=== PATIENT | male | born 1955 | race Caucasian/White ===

== ENCOUNTER 2020-09-19 01:52 | Outpatient (CLI) | payer MEDICARE ==
--- OUTSIDE RECORDS SUMMARY | 2020-09-26 22:28 | EXTERNAL MEDICAL SUMMARY RPT | Continuity of Care Document ---
:1955 Demographics Phone Unavailable Preferred Language Unknown Marital Status Unknown Hinduism Affiliation Unknown Race Unknown Ethnic Group Unknown Author Organization [place] Address [address] [place] [address] Phone Problems date description facility [id number] Acute kidney failure, unspecified [facility] Social History date description facility [phone]
== END 2020-09-19 01:53 | disposition critical access hospital (66) ==
LOC: EMS 01:52
PROVIDERS: ATTEND Emergency Medicine
DX: R10.10 Upper abdominal pain, unspecified (principal)
CPT/HCPCS: A0425; A0429

== ENCOUNTER 2020-09-19 02:26 | Emergency (ER) | payer MEDICARE ==
[2020-09-19] MEDS ORDERED: SODIUM CHLORIDE 0.9% 1,000 ML IV STA (02:45)
[2020-09-19] MEDS ORDERED: GI COCKTAIL 120 ML BOTTLE PO ONE (02:46)
[2020-09-19 03:00] LABS: BASOPHILS # (AUTO) 0.1 10^3/uL (0.0-0.1); BASOPHILS % (AUTO) 0.4 %; EOSINOPHILS # (AUTO) 0.1 10^3/uL (0.0-0.7); EOSINOPHILS % (AUTO) 0.9 %; HCT - HEMATOCRIT 24.7 % (42.0-52.0); HGB - HEMOGLOBIN 8.1 g/dL (14.0-18.0); LYMPHOCYTES # (AUTO) 0.6 10^3/uL (1.5-3.5); LYMPHOCYTES % (AUTO) 5.4 %; MEAN CORPUSCULAR HEMOGLOBIN 31.2 pg (27.0-31.0); MEAN CORPUSCULAR HGB CONC 32.8 g/dL (32.0-36.0); MEAN PLATELET VOLUME 10.7 fL (7.4-11.4); MONOCYTES # (AUTO) 0.7 10^3/uL (0.0-1.0); NEUTROPHILS # (AUTO) 9.7 10^3/uL (1.5-6.6); NEUTROPHILS % (AUTO) 86.8 %; PLT - PLATELET COUNT 170 10^3/uL (130-450); RED CELL DISTRIBUTION WIDTH 13.2 % (12.0-15.0); WHITE BLOOD COUNT 11.2 x10^3/uL (4.8-10.8)
[2020-09-19] MEDS ORDERED: LIDOCAINE VISCOUS 2% 15 ML UDC MM STA (03:04)
[2020-09-19] MEDS ORDERED: MAG HYDROX/AL HYDROX/SIMETH 30 ML UDC PO STA (03:04)
[2020-09-19 03:08] LABS: D-DIMER > 1050.0 ng/mL (200.0-255.0)
[2020-09-19 03:24] LABS: ALBUMIN 3.7 g/dL (3.2-5.5); ALBUMIN/GLOBULIN RATIO 1.3 (1.0-2.2); BILIRUBIN,TOTAL 0.6 mg/dL (0.2-1.0); CALCIUM 8.9 mg/dL (8.5-10.3); POTASSIUM 4.2 mmol/L (3.5-5.0); PT - PROTHROMBIN TIME 11.6 secs (9.9-12.6); TOTAL PROTEIN 6.5 g/dL (6.7-8.2)
--- NOTE | 2020-09-19 03:53 | ED Physician Documentation ---
History of Present Illness - Stated complaint Stated Complaint: LUQ PAIN - Chief complaint Chief Complaint: Abd Pain - History obtained from History obtained from: Patient, EMS - Additonal information Additional information: Patient is brought to the emergency department by EMS after her experiencing epigastric pain that awoke him out of sleep just prior to arrival. Patient states that he also had some diaphoresis, shortness of breath, and little nausea with a small amount of vomiting associated with the same episode. 2 days ago, patient had a similar episode, but this 1 seemed to go away on its own after couple of hours and taken some Tums. Patient states that prior to the medics arriving, he did take a dose of nitroglycerin and of aspirin, and this did seem to help somewhat. He states he still has a little bit of epigastric pain but his nausea is mostly gone. Patient has a history of coronary artery disease for which she has had a quadruple bypass in 2004 in [place], but states he has no problems with his heart currently that he knows of. He has not seen a health information tech recently for this. He does have a primary care physician and self would be where he lives. He states he is not seeing his PCP for at least 9 months, due to Covid. Patient denies fevers or chills. No cough. He does note that his has been telling him he looks pale for the last few days. The patient denies feeling ill in particular. No other complaints at this time. Review of Systems Ten Systems: 10 systems reviewed and negative Constitutional: reports: Reviewed and negative Eyes: reports: Reviewed and negative Ears: reports: Reviewed and negative Nose: reports: Reviewed and negative Throat: reports: Reviewed and negative Cardiac: reports: Reviewed and negative Respiratory: reports: Reviewed and negative GI: reports: Abdominal Pain, Nausea : reports: Reviewed and negative Skin: reports: Reviewed and negative Musculoskeletal: reports: Reviewed and negative Neurologic: reports: Reviewed and negative Psychiatric: reports: Reviewed and negative Endocrine: reports: Reviewed and negative Immunocompromised: reports: Reviewed and negative PD PAST MEDICAL HISTORY - Past Medical History Past Medical History: Yes Cardiovascular: Hypertension, High cholesterol Endocrine/Autoimmune: Type 2 diabetes - Past Surgical History Past Surgical History: No - Present Medications Home Medications: Ambulatory Orders Medication Instructions Recorded Confirmed Aspirin Chewable [[place] 1 tab PO DAILY 09/19/20 09/19/20 Aspirin] Atorvastatin Calcium [Lipitor] 1 tab PO DAILY 09/19/20 09/19/20 Chlorthalidone 1 tab PO DAILY 09/19/20 09/19/20 Metoprolol Succinate [Toprol Xl] 1 tab PO DAILY 09/19/20 09/19/20 Omeprazole 1 tab PO DAILY 09/19/20 09/19/20 Tamsulosin HCl [Flomax] 1 tab PO DAILY 09/19/20 09/19/20 lisinopriL [Lisinopril] 1 tab PO DAILY 09/19/20 09/19/20 - Allergies Allergies/Adverse Reactions: Allergies Allergy/AdvReac Type Severity Reaction Status Date / Time No Known Drug Allergies Allergy Verified 09/19/20 02:36 - Social History Does the pt smoke?: No Smoking Status: Never smoker PD ED PE NORMAL - Vitals Vital signs reviewed: Yes - General General: Alert and oriented X 3, No acute distress - HEENT HEENT: Atraumatic, PERRL, EOMI, Moist mucous membranes, Other (No icterus) - Neck Neck: Supple, no meningeal sign - Cardiac Cardiac: RRR, No murmur, Strong equal pulses - Respiratory Respiratory: No respiratory distress, Clear bilaterally - Abdomen Abdomen: Soft, Non tender, Non distended, Other (Mild epigastric tenderness and moderate left upper quadrant tenderness. Mild right upper quadrant tenderness. No rebound or guarding.) - Back Back: No CVA TTP - Derm Derm: Warm and dry, No rash, Other (Moderate pallor.) - Extremities Extremities: No deformity, No edema, No calf tenderness / cord - Neuro Neuro: Alert and oriented X 3, certified financial planner 2-12 intact, No motor deficit, No sensory deficit, Normal speech - Psych Psych: Normal mood, Normal affect Results - Vitals Vitals: Vital Signs - 24 hr 09/19/20 09/19/20 09/19/20 02:31 02:33 04:01 Temperature 36.5 C Heart Rate 82 78 77 Respiratory 20 18 20 Rate Blood Pressure 132/77 H 151/82 H O2 Saturation 98 98 100 Oxygen O2 Source Room air - EKG (time done) 0231 Rate: Rate (enter#) (72) Rhythm: NSR [place]: Normal Intervals: Normal MO QRS: LVH Ischemia: Normal ST segments. No: T wave inversion Compare to prior EKG: Old EKG unavailable Computer interpretation: Agree with computer - Labs Labs: Laboratory Tests 09/19/20 09/19/20 09/19/20 02:55 02:55 02:55 WBC 11.2 H RBC 2.60 L Hgb 8.1 L Hct 24.7 L MCV 95.0 H MCH 31.2 H MCHC 32.8 RDW 13.2 Plt Count 170 MPV 10.7 Neut # (Auto) 9.7 H Lymph # (Auto) 0.6 L [place] # (Auto) 0.7 Eos # (Auto) 0.1 Baso # (Auto) 0.1 Absolute Nucleated RBC 0.00 Nucleated RBC % 0.0 PT 11.6 INR 1.0 D-Dimer > 1050.0 H Sodium 140 Potassium 4.2 Chloride 106 Carbon Dioxide 18 L Anion Gap 16.0 H BUN 103 H* Creatinine 6.0 H Estimated GFR (MDRD) 9 L Glucose 172 H Calcium 8.9 Total Bilirubin 0.6 AST 164 H ALT 111 H Alkaline Phosphatase 67 Troponin I High Sens Total Protein 6.5 L Albumin 3.7 Globulin 2.8 Albumin/Globulin Ratio 1.3 Lipase 2470 H 09/19/20 02:55 WBC RBC Hgb Hct MCV MCH MCHC RDW Plt Count MPV Neut # (Auto) Lymph # (Auto) [place] # (Auto) Eos # (Auto) Baso # (Auto) Absolute Nucleated RBC Nucleated RBC % PT INR D-Dimer Sodium Potassium Chloride Carbon Dioxide Anion Gap BUN Creatinine Estimated GFR (MDRD) Glucose Calcium Total Bilirubin AST ALT Alkaline Phosphatase Troponin I High Sens 9.4 Total Protein Albumin Globulin Albumin/Globulin Ratio Lipase PD MEDICAL DECISION MAKING - ED course Complexity details: reviewed results, re-evaluated patient, considered differential, d/w patient ED course: The patient was doing better by the time he arrived in the emergency department, but given his history of coronary artery disease, I was concerned about epi sodes that he had had this last couple of days. An EKG with 4 view was unremarkable. The patient's vital signs were completely normal, and the patient was monitored throughout his stay. He was allowed to finish the liter bolus had been started on by EMS. Laboratory studies revealed a host of abnormalities, including an elevated BUN and creatinine at 136 with a GFR of 9. The patient's hemoglobin was 8.1. His Troponin was actually normal. The patient was found to have mild LFT elevations. I spoke with Dr. Quinones at [facility]. She did ultimately agree to admit the patient accept the patient in transfer to her service. Following my conversation with Dr. Quinones, the patient's lipase did come back above 2400. Given the patient also had some modest LFT elevations, I felt he should have an ultrasound done to evaluate his gallbladder and bile ducts. This is pending at this time, as a repeat troponin and the Covid test. The patient has been accepted in transfer. Oncoming emergency physician will follow up on the pending results and notify appropriate specialist or hospitalist at [facility] if needed. Departure - Departure Disposition: 02 Transfer Acute Care Hosp Clinical Impression: Renal failure Qualifiers: Renal failure chronicity: acute Acute renal failure type: unspecified Qualified Code(s): N17.9 - Acute kidney failure, unspecified Chest pain Qualifiers: Chest pain type: unspecified Qualified Code(s): R07.9 - Chest pain, unspecified Anemia Qualifiers: Anemia type: unspecified type Qualified Code(s): D64.9 - Anemia, unspecified Pancreatitis Qualifiers: Pancreatitis type: unspecified pancreatitis type Acute pancreatitis complication: unspecified Condition: Serious
[2020-09-19] MEDS ORDERED: HYDROmorphone 1 MG/ML CARPUJECT IVP STA ×3 (04:16→06:41)
[2020-09-19] MEDS ORDERED: HYDROmorphone 1 MG/ML CARPUJECT ONE (04:30)
[2020-09-19 05:39] LABS: B. PARAPERTUSSIS- RESP PCR PAN NOT DETECTED; B. PERTUSSIS- RESP PCR PANEL NOT DETECTED; C. PNEUMONIAE- RESP PCR PANEL NOT DETECTED; CORONAVIRUS 229E-RESP PCR NOT DETECTED; CORONAVIRUS HKU1-RESP PCR NOT DETECTED; CORONAVIRUS NL63-RESP PCR NOT DETECTED; CORONAVIRUS OC43-RESP PCR NOT DETECTED; HUMAN METAPNEUMOVIRUS NOT DETECTED; INFLUENZA A- RESP PCR PANEL NOT DETECTED; INFLUENZA B - RESP PCR PANEL NOT DETECTED; M. PNEUMONIAE- RESP PCR PANEL NOT DETECTED; PARAINFLUENZA VIRUS 1 NOT DETECTED; PARAINFLUENZA VIRUS 2 NOT DETECTED; PARAINFLUENZA VIRUS 3 NOT DETECTED; PARAINFLUENZA VIRUS 4 NOT DETECTED; RHINOVIRUS/ENTEROVIRUS NOT DETECTED; RSV- RESP PCR PANEL NOT DETECTED; SARS-CoV-2 -RESP PCR PANEL NOT DETECTED
[2020-09-19 05:47] LABS: BILIRUBIN,URINE NEGATIVE (NEGATIVE); GLUCOSE, URINE (UA) NEGATIVE (NEGATIVE); KETONES,URINE (UA) NEGATIVE (NEGATIVE); LEUKOCYTE ESTERASE, URINE NEGATIVE (NEGATIVE); NITRITE,URINE NEGATIVE (NEGATIVE); OCCULT BLOOD,URINE NEGATIVE (NEGATIVE); PH,URINE 5.5 PH (5.0-7.5); PROTEIN,URINE NEGATIVE (NEGATIVE); UROBILINOGEN,URINE 0.2 (NORMAL) E.U./dL (NORMAL)
[2020-09-19 05:48] LABS: CLARITY,URINE CLEAR (CLEAR)
[2020-09-19 06:48] VITALS: BP 135/71
--- NOTE | 2020-09-19 08:21 | XRAY Report ---
PROCEDURE: Chest 1 View X-Ray INDICATIONS: Chest Pain TECHNIQUE: One view of the chest was acquired. COMPARISON: None. FINDINGS: Surgical changes and devices: Multiple median sternotomy wires are intact. Surgical clips in the medi astinum are present. Findings are likely related to prior CABG. Lungs and pleura: No pleural effusions or pneumothorax. Lungs are clear. Mediastinum: Mediastinal contours appear normal. Heart size is normal. Bones and chest wall: No suspicious bony lesions. Overlying soft tissues appear unremarkable. IMPRESSION: Chest without acute cardiopulmonary abnormalities. No focal airspace disease. No significant discrepancy with initial interpretation by overnight radiologist. Reviewed by: Henrique Pierce MD on 09/19/2020 8:19 AM PDT Approved by: Henrique Pierce MD on 09/19/2020 8:19 AM PDT Station ID: [id number]
--- NOTE | 2020-09-19 08:26 | Ultrasound Report ---
PROCEDURE: Abdomen Limited INDICATIONS: upper abd pain, lipase and LFT elevated TECHNIQUE: Real-time scanning was performed of the abdominal and retroperitoneal organs, with image documentatio n. COMPARISON: None. FINDINGS: Liver: Liver is normal in size and heterogeneous in echotexture. No focal intrahepatic masses. Gallbladder: Gallbladder contains multiple mobile stones largest measuring 1.8 cm in size. There is a ssociated gallbladder wall thickening. Small amount of pericholecystic fluid. No sonographic Trejo s ign elicited per bearing ring assembler's report. Biliary ducts: Intrahepatic bile ducts are non-dilated. Extrahepatic bile duct caliber measures 5 m m. Normal is 6-7 mm or less in diameter, or 10 mm or less post-cholecystectomy. Pancreas: Visualized portions of the pancreas are sonographically normal. Kidneys: There is marked right hydronephrosis. Right renal length measures 11.8 cm with renal cortic al thickness of 1.1 cm. No evidence for urolithiasis on the right. No solid masses. Miscellaneous: No free abdominal fluid. IMPRESSION: 1. Cholelithiasis with associated pericholecystic fluid and wall thickening. Findings may be related to cholecystitis, either chronic or acute. A positive sonographic Trejo sign was not elicited by the bearing ring assembler. Consider further evaluation with nuclear medicine hepatobiliary scan. 2. Moderate right hydronephrosis. No evidence for urolithiasis on the right. No significant discrepancy with initial interpretation by overnight radiologist. Reviewed by: Henrique Pierce MD on 09/19/2020 8:25 AM PDT Approved by: Henrique Pierce MD on 09/19/2020 8:25 AM PDT Station ID: [id number]
== END 2020-09-19 06:48 | disposition short-term general hospital (02) ==
LOC: EDUNIT# → ED 02:26
DX: N17.9 Acute kidney failure, unspecified (principal); R07.9 Chest pain, unspecified; K85.90 Acute pancreatitis without necrosis or infection, unspecified; K80.20 Calculus of gallbladder without cholecystitis without obstruction; N13.30 Unspecified hydronephrosis; D64.9 Anemia, unspecified; Z20.822 Contact with and (suspected) exposure to COVID-19; I25.10 Atherosclerotic heart disease of native coronary artery without angina pectoris; Z95.1 Presence of aortocoronary bypass graft; I10 Essential (primary) hypertension; E11.9 Type 2 diabetes mellitus without complications; Z79.82 Long term (current) use of aspirin
CPT/HCPCS: 36415; 71045; 76705; 80053; 81003; 83690; 84484; 85025; 85379; 85610; 87631; 93005; 96374; 96376; 99285; A9270; J1170; 0202U; 81001; 87086

== ENCOUNTER 2020-09-19 06:47 | Outpatient (CLI) | payer MEDICARE ==
--- OUTSIDE RECORDS SUMMARY | 2020-09-26 22:39 | EXTERNAL MEDICAL SUMMARY RPT | Continuity of Care Document ---
:1955 Demographics Phone Unavailable Preferred Language Unknown Marital Status Unknown Buddhist Affiliation Unknown Race Unknown Ethnic Group Unknown Author Organization [place] [address] [place] [address] Phone Problems date description facility [id number] Acute kidney failure, unspecified [facility] Social History date description facility [phone]
== END 2020-09-19 06:48 | disposition short-term general hospital (02) ==
LOC: EMS 06:47
PROVIDERS: ATTEND Emergency Medicine
DX: N19 Unspecified kidney failure (principal); R07.9 Chest pain, unspecified; I25.10 Atherosclerotic heart disease of native coronary artery without angina pectoris; D64.9 Anemia, unspecified; K85.90 Acute pancreatitis without necrosis or infection, unspecified
CPT/HCPCS: A0425; A0428

== ENCOUNTER 2020-10-22 17:05 | Inpatient (IN) | payer MEDICARE ==
--- OUTSIDE RECORDS SUMMARY | 2020-10-22 17:08 | EXTERNAL MEDICAL SUMMARY RPT | Continuity of Care Document ---
:1955 Demographics Phone Unavailable Preferred Language Unknown Marital Status Unknown Nondenominational Affiliation Unknown Race Unknown Ethnic Group Unknown Author Organization [place] [address] [place] [address] Phone Problems date description facility [id number] Acute kidney failure, unspecified [facility] Social History date description facility [phone]
--- OUTSIDE RECORDS SUMMARY | 2020-10-22 17:11 | EXTERNAL MEDICAL SUMMARY RPT | Continuity of Care Document ---
:1955 Demographics Phone Unavailable Preferred Language Unknown Marital Status Unknown Holiness Affiliation Unknown Race Unknown Ethnic Group Unknown Author Organization [place] [address] [place] [address] Phone Problems date description facility [id number] Acute kidney failure, unspecified [facility] Social History date description facility [phone]
[2020-10-22] MEDS ORDERED: CEFEPIME 2 GM in SODIUM CHLORIDE 0.9% MINIBAG 100 ML IV STA (17:31)
[2020-10-22] MEDS ORDERED: LACTATED RINGERS IV STA (17:31)
--- NOTE | 2020-10-22 17:31 | ED Physician Documentation ---
PD HPI ABD PAIN - Stated complaint Stated Complaint: MALE - Chief complaint Chief Complaint: Abd Pain - History obtained from History obtained from: Patient - Additional information Additional information: 65-year-old gentleman with history of BPH, renal failure due to urinary obstruction and coronary disease status post remote bypass presents with fevers chills and bilateral flank pain starting today. He was seen here on September 19 and noted to be in acute renal failure. He was sent to [facility], the cause of the acute renal failure was felt to be likely due to the urinary obstruction. Reportedly this resolved after catheter placement. Subsequently he also had evidence of cholecystitis and he had a laparoscopic cholecystectomy. He had a urinary catheter removed about a week ago, was on antibiotics, not sure which until that time. Actually had a urinalysis done for gross hematuria which she has a copy of, it was collected on October 18. It was a positive urinalysis and the culture grew Klebsiella oxytocin sensitive to cefepime, ciprofloxacin, imipenem, levofloxacin, meropenem, nitrofurantoin, and resistant to ampicillin/Augmentin, cefazolin, ceftriaxone, cefuroxime, gentamicin, te tracycline, tobramycin, and Bactrim. Review of Systems Ten Systems: 10 systems reviewed and negative Constitutional: reports: Fever, Chills Throat: reports: Reviewed and negative Cardiac: reports: Reviewed and negative Respiratory: reports: Reviewed and negative GI: reports: Reviewed and negative : reports: Reviewed and negative Skin: reports: Reviewed and negative Musculoskeletal: reports: Reviewed and negative PD PAST MEDICAL HISTORY - Past Medical History Cardiovascular: Hypertension, High cholesterol Endocrine/Autoimmune: Type 2 diabetes - Past Surgical History Past Surgical History: No - Present Medications Home Medications: Ambulatory Orders Medication Instructions Recorded Confirmed Aspirin Chewable [[place] 1 tab PO DAILY 09/19/20 09/19/20 Aspirin] Atorvastatin Calcium [Lipitor] 1 tab PO DAILY 09/19/20 09/19/20 Chlorthalidone 1 tab PO DAILY 09/19/20 09/19/20 Metoprolol Succinate [Toprol Xl] 1 tab PO DAILY 09/19/20 09/19/20 Omeprazole 1 tab PO DAILY 09/19/20 09/19/20 Tamsulosin HCl [Flomax] 1 tab PO DAILY 09/19/20 09/19/20 lisinopriL [Lisinopril] 1 tab PO DAILY 09/19/20 09/19/20 - Allergies Allergies/Adverse Reactions: Allergies Allergy/AdvReac Type Severity Reaction Status Date / Time No Known Drug Allergies Allergy Verified 10/22/20 17:18 - Social History Does the pt smoke?: No Smoking Status: Never smoker PD ED PE NORMAL - Vitals Vital signs reviewed: Yes - General General: Alert and oriented X 3, No acute distress - HEENT HEENT: PERRL, EOMI - Neck Neck: Supple, no meningeal sign, No bony TTP - Cardiac Cardiac: RRR, No murmur - Respiratory Respiratory: No respiratory distress, Clear bilaterally - Abdomen Abdomen: Other (Mild suprapubic tenderness, no flank tenderness. Bedside bladder scan demonstrates almost 700 mL in the bladder.) - Back Back: No CVA TTP, No spinal TTP - Derm Derm: Normal color, Warm and dry - Extremities Extremities: No edema, No calf tenderness / cord - Neuro Neuro: Alert and oriented X 3, Normal speech Results - Vitals Vitals: Vital Signs - 24 hr 10/22/20 10/22/20 10/22/20 17:11 17:51 18:21 Temperature 38.4 C H Heart Rate 108 H 102 H 96 Respiratory 20 28 H 22 Rate Blood Pressure 154/89 H 142/88 H 143/95 H O2 Saturation 100 99 98 10/22/20 10/22/20 18:48 19:30 Temperature 37.1 C Heart Rate 98 86 Respiratory 29 H 22 Rate Blood Pressure 134/95 H 127/78 O2 Saturation 98 88 L Oxygen O2 Source Room air - Labs Labs: Laboratory Tests 10/22/20 10/22/20 10/22/20 17:36 17:36 17:36 WBC 16.0 H RBC 3.12 L Hgb 9.6 L Hct 29.3 L MCV 93.9 MCH 30.8 MCHC 32.8 RDW 13.8 Plt Count 253 MPV 9.2 Neut # (Auto) 13.8 H Lymph # (Auto) 0.7 L [place] # (Auto) 1.3 H Eos # (Auto) 0.0 Baso # (Auto) 0.1 Absolute Nucleated RBC 0.00 Nucleated RBC % 0.0 Sodium 136 Potassium 4.6 Chloride 101 Carbon Dioxide 23 Anion Gap 12.0 BUN 69 H Creatinine 3.8 H Estimated GFR (MDRD) 16 L Glucose 132 H Lactic Acid 1.6 Calcium 9.5 Total Bilirubin 0.6 AST 16 ALT 17 Alkaline Phosphatase 82 Total Protein 7.8 Albumin 3.4 Globulin 4.4 H Albumin/Globulin Ratio 0.8 L Urine Color Urine Clarity Urine pH Ur Specific [place] Urine Protein Urine Glucose (UA) Urine Ketones Urine Occult Blood Urine Nitrite Urine Bilirubin Urine Urobilinogen Ur Leukocyte Esterase Urine RBC Urine WBC Ur Squamous Epith Cells Urine Bacteria Urine Culture Comments 10/22/20 17:52 WBC RBC Hgb Hct MCV MCH MCHC RDW Plt Count MPV Neut # (Auto) Lymph # (Auto) [place] # (Auto) Eos # (Auto) Baso # (Auto) Absolute Nucleated RBC Nucleated RBC % Sodium Potassium Chloride Carbon Dioxide Anion Gap BUN Creatinine Estimated GFR (MDRD) Glucose Lactic Acid Calcium Total Bilirubin AST ALT Alkaline Phosphatase Total Protein Albumin Globulin Albumin/Globulin Ratio Urine Color YELLOW Urine Clarity CLOUDY Urine pH 6.0 Ur Specific [place] 1.010 Urine Protein 100 H Urine Glucose (UA) NEGATIVE Urine Ketones NEGATIVE Urine Occult Blood LARGE H Urine Nitrite NEGATIVE Urine Bilirubin NEGATIVE Urine Urobilinogen 0.2 (NORMAL) Ur Leukocyte Esterase LARGE H Urine RBC 11-25 H Urine WBC >25 H Ur Squamous Epith Cells NONE SEEN Urine Bacteria Moderate H Urine Culture Comments INDICATED - Rads (name of study) CT KUB Radiology: EMP read contemporaneously (Right hydronephrosis and hydroureters bilaterally, ureters are dilated to the level UVJ. Masslike density in the bladder lumen could be hematoma or tumor, mild left renal atrophy, bladder wall thickening, indeterminate sclerotic foci in the pelvis and sacrum) PD MEDICAL DECISION MAKING - ED course ED course: States last outpt creatinine was 2.6. 65-year-old gentleman presents with sepsis related to UTI, bladder outlet obstruction. Case discussed by phone with Dr. Dot Rosario, urologist on- call for his urologist in [place]. She did not feel that he needs transfer at this point. Recommends hand bladder irrigation and admission here for expectant management with IV fluids, IV antibiotics, cultures etc. When he is discharged in the hospital bladder catheter should stay in place and he should follow-up with urology for cystoscopy and TURP. Spoke with Dr. Ruiz for admission at 7:34 PM. Departure - Departure Disposition: 66 [facility] DC/Xfer Clinical Impression: Urinary retention, Pyelonephritis, RAND (acute kidney injury) Sepsis Qualifiers: Sepsis type: sepsis due to unspecified organism Sepsis acute organ dysfunction status: with acute organ dysfunction Severe sepsis acute organ dysfunction type: acute renal failure Acute renal failure type: unspecified Severe sepsis shock status: without septic shock Qualified Code(s): A41.9 - Sepsis, unspecified organism Chronic renal insufficiency Qualifiers: Chronic kidney disease stage: stage 4 (severe) Qualified Code(s): N18.4 - Chronic kidney disease, stage 4 (severe)
[2020-10-22 17:42] LABS: BASOPHILS # (AUTO) 0.1 10^3/uL (0.0-0.1); BASOPHILS % (AUTO) 0.4 %; EOSINOPHILS % (AUTO) 0.1 %; HCT - HEMATOCRIT 29.3 % (42.0-52.0); HGB - HEMOGLOBIN 9.6 g/dL (14.0-18.0); LYMPHOCYTES # (AUTO) 0.7 10^3/uL (1.5-3.5); LYMPHOCYTES % (AUTO) 4.1 %; MEAN CORPUSCULAR HEMOGLOBIN 30.8 pg (27.0-31.0); MEAN CORPUSCULAR HGB CONC 32.8 g/dL (32.0-36.0); MEAN CORPUSCULAR VOLUME 93.9 fL (80.0-94.0); MEAN PLATELET VOLUME 9.2 fL (7.4-11.4); MONOCYTES # (AUTO) 1.3 10^3/uL (0.0-1.0); MONOCYTES % (AUTO) 8.3 %; NEUTROPHILS # (AUTO) 13.8 10^3/uL (1.5-6.6); NEUTROPHILS % (AUTO) 86.5 %; PLT - PLATELET COUNT 253 10^3/uL (130-450); RED BLOOD COUNT 3.12 10^6/uL (4.70-6.10); RED CELL DISTRIBUTION WIDTH 13.8 % (12.0-15.0)
[2020-10-22 17:55] LABS: ALBUMIN 3.4 g/dL (3.2-5.5); ALBUMIN/GLOBULIN RATIO 0.8 (1.0-2.2); BILIRUBIN,TOTAL 0.6 mg/dL (0.2-1.0); CALCIUM 9.5 mg/dL (8.5-10.3); CREATININE 3.8 mg/dL (0.6-1.2); POTASSIUM 4.6 mmol/L (3.5-5.0); TOTAL PROTEIN 7.8 g/dL (6.7-8.2)
[2020-10-22 18:02] LABS: BILIRUBIN,URINE NEGATIVE (NEGATIVE); GLUCOSE, URINE (UA) NEGATIVE (NEGATIVE); KETONES,URINE (UA) NEGATIVE (NEGATIVE); LEUKOCYTE ESTERASE, URINE LARGE (NEGATIVE); NITRITE,URINE NEGATIVE (NEGATIVE); OCCULT BLOOD,URINE LARGE (NEGATIVE); PROTEIN,URINE 100 mg/dL (NEGATIVE); UROBILINOGEN,URINE 0.2 (NORMAL) E.U./dL (NORMAL)
[2020-10-22] MEDS ORDERED: ACETAMINOPHEN 325 MG TABLET PO STA (18:02)
[2020-10-22 18:07] LABS: CLARITY,URINE CLOUDY (CLEAR)
[2020-10-22 18:19] LABS: BACTERIA,URINE Moderate /HPF (None Seen); SQUAMOUS EPITHELIAL CELL,UR NONE SEEN (<= Few); WBC,URINE >25 /HPF (0-3)
--- NOTE | 2020-10-22 19:06 | CT Report ---
PROCEDURE: Abdomen/Pelvis WO INDICATIONS: urinary obstruction, sepsis TECHNIQUE: Noncontrast 5 mm thick sections acquired from the diaphragms to the symphysis. 5 mm coronal and sagi ttal reformats were then performed. For radiation dose reduction, the following was used: automated exposure control, adjustment of mA and/or kV according to patient size. COMPARISON: Ultrasound abdomen, 09/19/2020. FINDINGS: Image quality: Excellent. ABDOMEN: Lung bases: Lung bases are clear. Heart size is normal. Solid organs: Liver and spleen are normal in size. Gallbladder is visualized, likely surgically rem hannah. Pancreas is normal in contours. No adrenal nodules. Left kidney is decreased in size. There are bilateral moderate hydronephrosis and hydroureter. Ureter s are dilated to the level of UVJ. Kidneys are normal in size. No renal stones or ureteral stones. Bl adder is thickened. A [place] catheter is seen within the bladder. There is a masslike structure within the dependent bladder lumen. Peritoneum and bowel: Unenhanced bowel loops demonstrate normal wall thickness and caliber. No free fluid or air. Nodes and vessels: No retroperitoneal or mesenteric adenopathy by size criteria. Ectatic proximal ab dominal aorta measuring 3 cm in diameter. Gbov-yn-tfenodcl atherosclerosis. Miscellaneous: No ventral hernias. PELVIS: Genitourinary: Bladder wall thickness is normal. Miscellaneous: No inguinal hernias or adenopathy. Bones: There are several sclerotic foci in bony pelvis and sacrum iliac bone. No vertebral body comp ression fractures. IMPRESSION: 1. Moderate hydronephrosis and hydroureters bilaterally. Ureters are dilated to the level of UVJ. No obstructive renal stones or ureteral stones. There is a masslike density in the bladder lumen, which could be a hematoma or tumors mass. Recommend urologic consultation. 2. Mild left renal atrophy. 3. Bladder wall thickening. Differential diagnoses include cystitis versus chronic bladder outlet obs truction. 4. Indeterminate sclerotic foci in pelvis and sacrum. Differential diagnosis includes bone islands ve rsus metastatic disease. 5. Reviewed by: Radha Cole MD on 10/22/2020 7:04 PM PDT Approved by: Radha Cole MD on 10/22/2020 7:04 PM PDT Station ID: [id number]
[2020-10-22] MEDS ORDERED: SODIUM CHLORIDE FLUSH 0.9% 10 ML SYRINGE IVP PRN (19:37)
[2020-10-22] MEDS ORDERED: MORPHINE 2 MG/ML CARPUJECT IVP PRN (19:37)
[2020-10-22] MEDS ORDERED: ONDANSETRON 4 MG/2 ML VIAL IVP PRN (19:37)
--- NOTE | 2020-10-22 19:47 | HISTORY & PHYSICAL EXAMINATION ---
Chief Complaint - Chief Complaint Chief Complaint: Fever and fatigue History of Present Illness - Admitted From Admitted From:: Home - History Obtained From Records Reviewed: Yes History obtained from: Patient, ER Physician, EMR - History of Present Illness HPI Comment/Other: This is a pleasant 65-year-old male with a past medical history significant for coronary artery disease, hypertension, prediabetes, BPH who presents today complaining of fever and fatigue. He was hospitalized last month at [facility] for nearly 2 weeks for acute kidney injury secondary to bladder outlet obstruction that required a Laughlin catheter to be placed. He also had pancreatitis and underwent a cholecystectomy during that hospitalization. He states he was discharged home with a Laughlin catheter. He developed hematuria last Friday while the catheter was in place and so he saw his primary care provider who ordered urinalysis and he was diagnosed with a urinary tract infection and was started on Augmentin. He then saw his urologist 2 days later who irrigated his bladder and removed the catheter. The patient states he was supposed follow-up with his primary care provider if he had difficulty urinating but he felt like he was improving as he was able to urinate about 120 mL each time and the bleeding had resolved. He then woke up this morning feeling fatigued and weak. He measured his temperature which was as high as 101 F. He reports some chills and rigors. Denies any dizziness, lightheadedness, chest pain, dyspnea. He does report dysuria but denies any further hematuria. He does complain of some suprapubic tenderness. He tells me he is scheduled to see his urologist for cystoscopy. He does take aspirin 81 mg daily for his history of coronary artery disease. He is also taking Proscar and Flomax. He tells me his baseline creatinine after discharge from [facility] was about 2.4. In the emergency department, he was found to be febrile with a temperature of 38.4 C. His heart was in the 100s. Blood pressure was in the 140 systolic. H e was tachypneic with respiratory rate of 22. He was saturating 99% on room air. Labs were significant for a white count of 16 with a left shift. Hemoglobin was 9.6. His BUN was 69 and creatinine 3.8. Lactic acid was 1.6. Urinalysis revealed large occult blood, large leuk esterase, 11-25 RBCs, with >25 WBCs and moderate bacteria. CT of the abdomen and pelvis revealed moderate hydronephrosis and hydroureters bilaterally with a masslike density in the bladder lumen which could be hematoma or tumor mass. Bladder wall thickening. Received cefepime IV in the emergency department. Given the above findings, medicine was consulted for admission. We did discuss goals of care and he would like to be a full code. History - Past Medical History Cardiovascular: reports: Hypertension, High cholesterol, Coronary artery disease Endocrine/Autoimmune: reports: Other (Prediabetes) : reports: Benign prostate hypertrophy - Past Surgical History General: reports: Appendectomy Cardiovascular: reports: CABG - Family & Social History Family History: Father: , CAD, Diabetes, Type 2, [place] Family History Comment/Other: His father had a history of poorly controlled diabetes. He also had a coronary artery disease and from myocardial infarction. He denies a family history of cancer or renal disease. Living arrangement: At home Living Situation: With spouse/s.o. Social History Notes: He lives at home with his . He previously worked for [employer] but is now retired. He smoked about a pack a day for 20 years but quit in 1991. He will have an occasional glass of wine. Meds/Allgy - Home Medications Home Medications: Ambulatory Orders Medication Instructions Recorded Confirmed Aspirin Chewable [[facility] 1 tab PO DAILY 09/19/20 09/19/20 Aspirin] Atorvastatin Calcium [Lipitor] 1 tab PO DAILY 09/19/20 09/19/20 Chlorthalidone 1 tab PO DAILY 09/19/20 09/19/20 Metoprolol Succinate [Toprol Xl] 1 tab PO DAILY 09/19/20 09/19/20 Omeprazole 1 tab PO DAILY 09/19/20 09/19/20 Tamsulosin HCl [Flomax] 1 tab PO DAILY 09/19/20 09/19/20 lisinopriL [Lisinopril] 1 tab PO DAILY 09/19/20 09/19/20 - Allergies Allergies/Adverse Reactions: Allergies Allergy/AdvReac Type Severity Reaction Status Date / Time No Known Drug Allergies Allergy Verified 10/22/20 17:18 Review of Systems - Constitutional Constitutional: reports: Fever, Chills - Eyes Eyes: denies: Blurred vision - Cardiovascular Cariovascular: denies: Chest pain, Lightheadedness, Exertional dyspnea, Decr. exercise tolerance - Respiratory Respiratory: denies: Sputum production, SOB at rest, SOB with exertion - Gastrointestinal Gastrointestinal: reports: Diarrhea, Change in bowel habits. denies: Abdominal pain, Rectal bleeding, Black stools, Bloody stools, Nausea, Vomiting - Genitourinary Genitourinary: reports: Dysuria, Urgency, Hematuria, Flank pain. denies: Frequency - Musculoskeletal Musculoskeletal: denies: Limited range of motion - Integumentary Integumentary: denies: Rash - Neurological Neurological: denies: General weakness, Focal weakness, Headache, Dizziness - Hematologic/Lymphatic Hematologic/Lymphatic: reports: Anemia. denies: Bleeding tendencies - All Other Systems All Other Systems: reports: Reviewed and negative Prior Level of Functionality: He is independent with his ADLs. Exam - Vital Signs Reviewed Vital Signs: Yes Vital Signs: Vital Signs x48h Temp Pulse Resp BP Pulse Ox 10/22/20 19:30 86 22 127/78 88 L 10/22/20 18:48 37.1 C 98 29 H 134/95 H 98 10/22/20 18:21 96 22 143/95 H 98 10/22/20 17:51 102 H 28 H 142/88 H 99 10/22/20 17:11 38.4 C H 108 H 20 154/89 H 100 - Physical Exam General Appearance: positive: No acute distress, Alert Eyes Bilateral: positive: Normal inspection, Conjunctivae nml ENT: positive: ENT inspection nml Neck: positive: Nml inspection Respiratory: positive: No respiratory distress. negative: Wheezes, Rales Cardiovascular: positive: Regular rate & rhythm, No murmur. negative: Ta chycardia, Systolic murmur Abdomen: positive: No distention, Tenderness (In suprapubic region.), Other (Prior incisions for cholecystectomy appear clean, dry without erythema.). negative: Non-tender, Guarding, Rebound Rectal: positive: Other (Laughlin catheter in place.) Back: negative: CVA tenderness (R), CVA tenderness (L) Skin: positive: Warm, Dry Extremities: positive: No pedal edema Neurologic/Psychiatric: positive: Motor nml. negative: Disoriented to person, Disoriented to place Sepsis Event Note (H) - Evaluation Current Stage of Sepsis: Sepsis Possible source of Sepsis: positive: Genitourinary - Sepsis Criteria Sepsis Criteria: Recorded Temperature greater than 38.3C or Less than 36C, Recorded Heart Rate greater than 90 bpm, WBC count greater than 12,000 or less than 4000, Renal: urine output less than 0.5ml/kg/hr for 2 hours or creatinine gr Conclusion/Plan - Problem List (1) Sepsis Conclusion/Plan: This appears to be secondary to the pyelonephritis. He presents with fever, tachycardia, leukocytosis. His lactic acid is normal and he is normotensive. We will admit for IV antibiotics. We will start him on cefepime IV based off of his outpatient cultures. Follow-up blood cultures. Follow-up repeat urine culture during this hospitalization. Daily CBC. Qualifiers: Sepsis type: sepsis due to unspecified organism Sepsis acute organ dysfunction status: with acute organ dysfunction Severe sepsis acute organ dysfunction type: acute renal failure Acute renal failure type: unspecified Severe sepsis shock status: without septic shock Qualified Code(s): A41.9 - Sepsis, unspecified organism; R65.20 - Severe sepsis without septic shock; N17.9 - Acute kidney failure, unspecified (2) Pyelonephritis Conclusion/Plan: This appears to be a source of his sepsis. He presents with abnormal urinalysis and flank pain. His outpatient urinalysis from October 18 grew Klebsiella oxytocin which is sensitive to cefepime, meropenem, ciprofloxacin and resistant to Augmentin, ceftriaxone. CT of the abdomen pelvis revealed no obvious obstruction. There is bilateral hydronephrosis secondary to likely bladder outlet obstruction due to clot versus mass. We will place him on IV cefepime and follow-up repeat urine culture and blood cultures. (3) Bilateral hydronephrosis Conclusion/Plan: He has bilateral hydronephrosis on imaging without evidence of obstructive stones. Suspect this is secondary to bladder outlet obstruction due to a clot or mass in his bladder versus BPH. This finding was discussed with urology by the emergency department provider and they recommended Laughlin catheter placement and outpatient follow-up. We will keep the catheter in place and continue Flomax as well as Proscar. (4) Acute kidney injury superimposed on CKD Conclusion/Plan: It appears he likely has chronic kidney disease secondary to the hydronephrosis which was present even last month. His acute kidney injury I suspect is due to worsening obstruction although there could be component of prerenal injury. At this time, we will hold his home lisinopril. Hydrate him with IV fluids. Avoid nephrotoxins. We will keep the Laughlin catheter in place and monitor his renal function on daily basis. (5) Hematuria Conclusion/Plan: Suspect this may be secondary to laughlin irritation and his BPH versus mass or clot in the bladder. He has minimal gross hematuria at this time We will keep the Laughlin catheter in place and start the patient on continuous bladder irrigation. He will need outpatient follow-up with urology for cystoscopy. We will hold aspirin given the hematuria but will resume when appropriate. (6) Anemia Conclusion/Plan: His hemoglobin is actually increased today to 9.6 from 8.1 last month. This could be chronic secondary to renal insufficiency although there could also be a component of acute blood loss anemia given the hematuria. At this time, we will check his iron studies. Repeat hemoglobin in the morning. Hold pharmacologic DVT prophylaxis and his home aspirin. SCDs for DVT prophylaxis. (7) History of coronary artery disease Conclusion/Plan: Stable. We will hold his home aspirin given the hematuria but continue his statin. We will continue his beta-larry once we ensure his blood pressure is stable from a sepsis standpoint. (8) Prediabetes Conclusion/Plan: This is diet controlled. We will place him on a carb controlled diet. - Lab Results Lab results reviewed: Yes Fish Bones: 10/22/20 17:36 10/22/20 17:36 - Diagnostic Imaging Results Diagnostic Imaging Results: positive: Final report reviewed Core Measures - Anticipated LOS I expect patient to be DC'd or transferred within 96 hours.: Yes - Issues Hospital Issues and Management Plan: 65-year-old male with history of coronary disease presents with fever and chills after being treated for an outpatient urinary tract infection found to have sepsis as well as bilateral hydronephrosis secondary to bladder outlet obstruction. We will admit for IV antibiotics and Laughlin catheter placement. Also has gross hematuria and so we will place him on continuous bladder irri gation. - DVT/VTE - Prophylaxis VTE/DVT Device ordered at admit?: Yes VTE/DVT Prophylaxis med ordered at admit?: No Not Ordered - Medical Reason: Contraindicated
--- OUTSIDE RECORDS SUMMARY | 2020-10-22 20:02 | EXTERNAL MEDICAL SUMMARY RPT | Continuity of Care Document ---
:1955 Demographics Phone Unavailable Preferred Language Unknown Marital Status Unknown Mu-Ism Affiliation Unknown Race Unknown Ethnic Group Unknown Author Organization [facility] Address [address] [place] [address] Phone Problems date description facility [id number] Acute kidney failure, unspecified [facility] Social History date description facility [id number]
[2020-10-22 20:45] LABS: B. PARAPERTUSSIS- RESP PCR PAN NOT DETECTED; B. PERTUSSIS- RESP PCR PANEL NOT DETECTED; C. PNEUMONIAE- RESP PCR PANEL NOT DETECTED; CORONAVIRUS 229E-RESP PCR NOT DETECTED; CORONAVIRUS HKU1-RESP PCR NOT DETECTED; CORONAVIRUS NL63-RESP PCR NOT DETECTED; CORONAVIRUS OC43-RESP PCR NOT DETECTED; HUMAN METAPNEUMOVIRUS NOT DETECTED; INFLUENZA A- RESP PCR PANEL NOT DETECTED; INFLUENZA B - RESP PCR PANEL NOT DETECTED; M. PNEUMONIAE- RESP PCR PANEL NOT DETECTED; PARAINFLUENZA VIRUS 1 NOT DETECTED; PARAINFLUENZA VIRUS 2 NOT DETECTED; PARAINFLUENZA VIRUS 3 NOT DETECTED; PARAINFLUENZA VIRUS 4 NOT DETECTED; RHINOVIRUS/ENTEROVIRUS NOT DETECTED; RSV- RESP PCR PANEL NOT DETECTED; SARS-CoV-2 -RESP PCR PANEL NOT DETECTED
[2020-10-22] MEDS: LACTATED RINGERS 1,000 ML IV SCH (21:44)
[2020-10-22] MEDS: TAMSULOSIN 0.4 MG CAPSULE PO SCH (21:45)
[2020-10-23] MEDS: ACETAMINOPHEN 325 MG TABLET PO PRN ×2 (00:16→14:47)
[2020-10-23] MEDS: SODIUM CHLORIDE FLUSH 0.9% 10 ML SYRINGE IVP SCH ×3 (00:17→16:38)
[2020-10-23 05:21] LABS: BASOPHILS % (AUTO) 0.3 %; EOSINOPHILS # (AUTO) 0.1 10^3/uL (0.0-0.7); EOSINOPHILS % (AUTO) 0.4 %; HCT - HEMATOCRIT 26.1 % (42.0-52.0); HGB - HEMOGLOBIN 8.4 g/dL (14.0-18.0); MEAN CORPUSCULAR HEMOGLOBIN 30.5 pg (27.0-31.0); MEAN CORPUSCULAR HGB CONC 32.2 g/dL (32.0-36.0); MEAN CORPUSCULAR VOLUME 94.9 fL (80.0-94.0); MEAN PLATELET VOLUME 9.8 fL (7.4-11.4); MONOCYTES # (AUTO) 1.4 10^3/uL (0.0-1.0); MONOCYTES % (AUTO) 9.6 %; NEUTROPHILS # (AUTO) 11.7 10^3/uL (1.5-6.6); NEUTROPHILS % (AUTO) 82.1 %; PLT - PLATELET COUNT 202 10^3/uL (130-450); RED BLOOD COUNT 2.75 10^6/uL (4.70-6.10); RED CELL DISTRIBUTION WIDTH 13.7 % (12.0-15.0); WHITE BLOOD COUNT 14.3 x10^3/uL (4.8-10.8)
[2020-10-23 05:43] LABS: CALCIUM 9.1 mg/dL (8.5-10.3); CREATININE 3.7 mg/dL (0.6-1.2); MAGNESIUM 1.7 mg/dL (1.7-2.8); POTASSIUM 4.3 mmol/L (3.5-5.0)
--- NOTE | 2020-10-23 07:27 | PROVIDER PROGRESS NOTE ---
Subjective - Prog Note Date Prog Note Date: 10/23/20 Prog Note Time: 07:25 - Subjective Pt reports feeling: Improved Subjective: no overnight problems. creatinine has not responded much. hematuria has resolved. He wants to know what the differential diagnosis is of hematuria. I explained to him that with instrumentation of his urethra, into his bladder, it could be trauma from the Laughlin bruising his bladder wall causing bleeding and clots. It could be prostatitis. It could also be bladder cancer. He was supposed to get a cystoscopy this week but it is good to be canceled because of this visit. Hopefully he will get a cystoscopy in the near future. Current Medications - Current Medications Current Medications: Active Medications Acetaminophen (Acetaminophen 325 Mg Tablet) 650 mg PO Q4HR PRN PRN Reason: Pain 1 to 4 Last Admin: 10/23/20 00:16 Dose: 650 mg Documented by: Ferrous Gluconate (Ferrous Gluconate 324 Mg Tablet) 324 mg PO DAILYWM [facility] Finasteride (Finasteride 5 Mg Tablet) 5 mg PO DAILY [facility] Lactated Ringer's (Lr) 1,000 mls @ 100 mls/hr IV .Q10H [facility] Last Admin: 10/22/20 21:44 Dose: 100 mls/hr Documented by: Cefepime HCl 1 gm/ Sodium (Chloride) 100 mls @ 200 mls/hr IV DAILY [facility] Morphine Sulfate (Morphine 2 Mg/Ml Carpuject) 2 mg IVP Q2HR PRN PRN Reason: Pain 8 to 10 Ondansetron HCl (Ondansetron 4 Mg/2 Ml Vial) 4 mg IVP Q6HR PRN PRN Reason: Nausea / Vomiting Sodium Chloride (Sodium Chloride Flush 0.9% 10 Ml Syringe) 10 ml IVP PRN PRN PRN Reason: NEEDED PER PROVIDER ORDERS Sodium Chloride (Sodium Chloride Flush 0.9% 10 Ml Syringe) 10 ml IVP 0100,0900,1700 [facility] Last Admin: 10/23/20 00:17 Dose: 10 ml Documented by: Tamsulosin HCl (Tamsulosin 0.4 Mg Capsule) 0.4 mg PO HS [facility] Last Admin: 10/22/20 21:45 Dose: 0.4 mg Documented by: Aspirin Chewable [[place] Aspirin] 1 tab PO DAILY 09/19/20 Atorvastatin Calcium [Lipitor] 1 tab PO DAILY 09/19/20 Chlorthalidone 1 tab PO DAILY 09/19/20 Metoprolol Succinate [Toprol Xl] 1 tab PO DAILY 09/19/20 Omeprazole 1 tab PO DAILY 09/19/20 Tamsulosin HCl [Flomax] 1 tab PO DAILY 09/19/20 lisinopriL [Lisinopril] 1 tab PO DAILY 09/19/20 Objective - Vital Signs/Intake & Output Reviewed Vital Signs: Yes Vital Signs: Vital Signs x48h Temp Pulse Resp BP Pulse Ox 10/23/20 05:00 36.6 C 66 16 133/65 H 98 10/22/20 23:49 37.1 C 89 17 132/77 H 100 Intake & Output: Intake & Output 10/20/20 10/21/20 10/22/20 10/23/20 23:59 23:59 23:59 23:59 Intake Total 2195.59 1600 Output Total 2100 3125 Balance 95.59 -1525 - Objective General Appearance: positive: Alert, Other (Thin white male, no acute distress. Already feeling much better from yesterday to today. He is thin. He has lost 25 pounds in the last 4 weeks.) Eyes Bilateral: positive: PERRL, EOMI ENT: positive: No signs of dehydration Neck: positive: No JVD Respiratory: positive: No respiratory distress. negative: Wheezes, Rales, Rhonchi Cardiovascular: positive: Regular rate & rhythm. negative: Gallop/S4, Friction rub Abdomen: positive: No organomegaly, Nml bowel sounds, No distention, Tenderness (Over the bladder area. Mild.), Other (Is draining clear yellow urine. No clots no hematuria.). negative: Guarding, Rebound Skin: positive: Warm, Dry, Pallor Extremities: positive: Non-tender, No pedal edema Neurologic/Psychiatric: positive: Oriented x3, CN's nml (2-12), Motor nml - Lab Results Fish Bones: 10/23/20 05:08 10/23/20 05:08 Other Labs: Lab Results x24hrs 10/23/20 10/23/20 10/23/20 Range/Units 05:08 05:08 05:08 WBC 14.3 H (4.8-10.8) x10^3/uL RBC 2.75 L (4.70-6.10) 10^6/uL Hgb 8.4 L (14.0-18.0) g/dL Hct 26.1 L (42.0-52.0) % MCV 94.9 H (80.0-94.0) fL MCH 30.5 (27.0-31.0) pg MCHC 32.2 (32.0-36.0) g/dL RDW 13.7 (12.0-15.0) % Plt Count 202 (130-450) 10^3/uL MPV 9.8 (7.4-11.4) fL Neut # (Auto) 11.7 H (1.5-6.6) 10^3/uL Lymph # (Auto) 1.0 L (1.5-3.5) 10^3/uL [place] # (Auto) 1.4 H (0.0-1.0) 10^3/uL Eos # (Auto) 0.1 (0.0-0.7) 10^3/uL Baso # (Auto) 0.0 (0.0-0.1) 10^3/uL Absolute Nucleated RBC 0.00 x10^3/uL Nucleated RBC % 0.0 /100WBC Sodium 141 (135-145) mmol/L Potassium 4.3 (3.5-5.0) mmol/L Chloride 109 (101-111) mmol/L Carbon Dioxide 21 (21-32) mmol/L Anion Gap 11.0 (6-13) BUN 65 H (6-20) mg/dL Creatinine 3.7 H (0.6-1.2) mg/dL Estimated GFR (MDRD) 16 L (>89) Glucose 104 H (70-100) mg/dL Lactic Acid (0.5-2.2) mmol/L Calcium 9.1 (8.5-10.3) mg/dL Magnesium 1.7 (1.7-2.8) mg/dL Iron 9 L (45-182) ug/dL TIBC 123 L (250-450) ug/dL % Saturation 7 L (20-50) % Transferrin 88 L (180-329) mg/dL Ferritin 598.1 H (23.9-336.2) ng/mL Total Bilirubin (0.2-1.0) mg/dL AST (10-42) IU/L ALT (10-60) IU/L Alkaline Phosphatase (42-121) IU/L Total Protein (6.7-8.2) g/dL Albumin (3.2-5.5) g/dL Globulin (2.1-4.2) g/dL Albumin/Globulin Ratio (1.0-2.2) Urine Color Urine Clarity (CLEAR) Urine pH (5.0-7.5) PH Ur Specific [place] (1.002-1.030) Urine Protein (NEGATIVE) mg/dL Urine Glucose (UA) (NEGATIVE) mg/dL Urine Ketones (NEGATIVE) mg/dL Urine Occult Blood (NEGATIVE) Urine Nitrite (NEGATIVE) Urine Bilirubin (NEGATIVE) Urine Urobilinogen (NORMAL) E.U./dL Ur Leukocyte Esterase (NEGATIVE) Urine RBC (0-5) /HPF Urine WBC (0-3) /HPF Ur Squamous Epith Cells (<= Few) Urine Bacteria (None Seen) /HPF Urine Culture Comments Nasal Adenovirus (PCR) Nasal B. parapertussis DNA (PCR) Nasal Coronavir 229E PCR Nasal Coronavir HKU1 PCR Nasal Coronavir NL63 PCR Nasal Coronavir OC43 PCR Nasal Enterovir/Rhinovir PCR Nasal Influenza B PCR Nasal Influenza A PCR Nasal Parainfluen 1 PCR Nasal Parainfluen 2 PCR Nasal Parainfluen 3 PCR Nasal Parainfluen 4 PCR Nasal RSV (PCR) Nasal B.pertussis DNA PCR Nasal C.pneumoniae (PCR) Kiran Human Metapneumo PCR Nasal M.pneumoniae (PCR) Nasal SARS-CoV-2 (PCR) 10/22/20 10/22/20 10/22/20 Range/Units 19:37 17:52 17:36 WBC (4.8-10.8) x10^3/uL RBC (4.70-6.10) 10^6/uL Hgb (14.0-18.0) g/dL Hct (42.0-52.0) % MCV (80.0-94.0) fL MCH (27.0-31.0) pg MCHC (32.0-36.0) g/dL RDW (12.0-15.0) % Plt Count (130-450) 10^3/uL MPV (7.4-11.4) fL Neut # (Auto) (1.5-6.6) 10^3/uL Lymph # (Auto) (1.5-3.5) 10^3/uL [place] # (Auto) (0.0-1.0) 10^3/uL Eos # (Auto) (0.0-0.7) 10^3/uL Baso # (Auto) (0.0-0.1) 10^3/uL Absolute Nucleated RBC x10^3/uL Nucleated RBC % /100WBC Sodium (135-145) mmol/L Potassium (3.5-5.0) mmol/L Chloride (101-111) mmol/L Carbon Dioxide (21-32) mmol/L Anion Gap (6-13) BUN (6-20) mg/dL Creatinine (0.6-1.2) mg/dL Estimated GFR (MDRD) (>89) Glucose (70-100) mg/dL Lactic Acid 1.6 (0.5-2.2) mmol/L Calcium (8.5-10.3) mg/dL Magnesium (1.7-2.8) mg/dL Iron (45-182) ug/dL TIBC (250-450) ug/dL % Saturation (20-50) % Transferrin (180-329) mg/dL Ferritin (23.9-336.2) ng/mL Total Bilirubin (0.2-1.0) mg/dL AST (10-42) IU/L ALT (10-60) IU/L Alkaline Phosphatase (42-121) IU/L Total Protein (6.7-8.2) g/dL Albumin (3.2-5.5) g/dL Globulin (2.1-4.2) g/dL Albumin/Globulin Ratio (1.0-2.2) Urine Color YELLOW Urine Clarity CLOUDY (CLEAR) Urine pH 6.0 (5.0-7.5) PH Ur Specific [place] 1.010 (1.002-1.030) Urine Protein 100 H (NEGATIVE) mg/dL Urine Glucose (UA) NEGATIVE (NEGATIVE) mg/dL Urine Ketones NEGATIVE (NEGATIVE) mg/dL Urine Occult Blood LARGE H (NEGATIVE) Urine Nitrite NEGATIVE (NEGATIVE) Urine Bilirubin NEGATIVE (NEGATIVE) Urine Urobilinogen 0.2 (NORMAL) (NORMAL) E.U./dL Ur Leukocyte Esterase LARGE H (NEGATIVE) Urine RBC 11-25 H (0-5) /HPF Urine WBC >25 H (0-3) /HPF Ur Squamous Epith Cells NONE SEEN (<= Few) Urine Bacteria Moderate H (None Seen) /HPF Urine Culture Comments INDICATED Nasal Adenovirus (PCR) NOT DETECTED Nasal B. parapertussis DNA (PCR) NOT DETECTED Nasal Coronavir 229E PCR NOT DETECTED Nasal Coronavir HKU1 PCR NOT DETECTED Nasal Coronavir NL63 PCR NOT DETECTED Nasal Coronavir OC43 PCR NOT DETECTED Nasal Enterovir/Rhinovir PCR NOT DETECTED Nasal Influenza B PCR NOT DETECTED Nasal Influenza A PCR NOT DETECTED Nasal Parainfluen 1 PCR NOT DETECTED Nasal Parainfluen 2 PCR NOT DETECTED Nasal Parainfluen 3 PCR NOT DETECTED Nasal Parainfluen 4 PCR NOT DETECTED Nasal RSV (PCR) NOT DETECTED Nasal B.pertussis DNA PCR NOT DETECTED Nasal C.pneumoniae (PCR) NOT DETECTED Kiran Human Metapneumo PCR NOT DETECTED Nasal M.pneumoniae (PCR) NOT DETECTED Nasal SARS-CoV-2 (PCR) NOT DETECTED 10/22/20 10/22/20 Range/Units 17:36 17:36 WBC 16.0 H (4.8-10.8) x10^3/uL RBC 3.12 L (4.70-6.10) 10^6/uL Hgb 9.6 L (14.0-18.0) g/dL Hct 29.3 L (42.0-52.0) % MCV 93.9 (80.0-94.0) fL MCH 30.8 (27.0-31.0) pg MCHC 32.8 (32.0-36.0) g/dL RDW 13.8 (12.0-15.0) % Plt Count 253 (130-450) 10^3/uL MPV 9.2 (7.4-11.4) fL Neut # (Auto) 13.8 H (1.5-6.6) 10^3/uL Lymph # (Auto) 0.7 L (1.5-3.5) 10^3/uL [place] # (Auto) 1.3 H (0.0-1.0) 10^3/uL Eos # (Auto) 0.0 (0.0-0.7) 10^3/uL Baso # (Auto) 0.1 (0.0-0.1) 10^3/uL Absolute Nucleated RBC 0.00 x10^3/uL Nucleated RBC % 0.0 /100WBC Sodium 136 (135-145) mmol/L Potassium 4.6 (3.5-5.0) mmol/L Chloride 101 (101-111) mmol/L Carbon Dioxide 23 (21-32) mmol/L Anion Gap 12.0 (6-13) BUN 69 H (6-20) mg/dL Creatinine 3.8 H (0.6-1.2) mg/dL Estimated GFR (MDRD) 16 L (>89) Glucose 132 H (70-100) mg/dL Lactic Acid (0.5-2.2) mmol/L Calcium 9.5 (8.5-10.3) mg/dL Magnesium (1.7-2.8) mg/dL Iron (45-182) ug/dL TIBC (250-450) ug/dL % Saturation (20-50) % Transferrin (180-329) mg/dL Ferritin (23.9-336.2) ng/mL Total Bilirubin 0.6 (0.2-1.0) mg/dL AST 16 (10-42) IU/L ALT 17 (10-60) IU/L Alkaline Phosphatase 82 (42-121) IU/L Total Protein 7.8 (6.7-8.2) g/dL Albumin 3.4 (3.2-5.5) g/dL Globulin 4.4 H (2.1-4.2) g/dL Albumin/Globulin Ratio 0.8 L (1.0-2.2) Urine Color Urine Clarity (CLEAR) Urine pH (5.0-7.5) PH Ur Specific [place] (1.002-1.030) Urine Protein (NEGATIVE) mg/dL Urine Glucose (UA) (NEGATIVE) mg/dL Urine Ketones (NEGATIVE) mg/dL Urine Occult Blood (NEGATIVE) Urine Nitrite (NEGATIVE) Urine Bilirubin (NEGATIVE) Urine Urobilinogen (NORMAL) E.U./dL Ur Leukocyte Esterase (NEGATIVE) Urine RBC (0-5) /HPF Urine WBC (0-3) /HPF Ur Squamous Epith Cells (<= Few) Urine Bacteria (None Seen) /HPF Urine Culture Comments Nasal Adenovirus (PCR) Nasal B. parapertussis DNA (PCR) Nasal Coronavir 229E PCR Nasal Coronavir HKU1 PCR Nasal Coronavir NL63 PCR Nasal Coronavir OC43 PCR Nasal Enterovir/Rhinovir PCR Nasal Influenza B PCR Nasal Influenza A PCR Nasal Parainfluen 1 PCR Nasal Parainfluen 2 PCR Nasal Parainfluen 3 PCR Nasal Parainfluen 4 PCR Nasal RSV (PCR) Nasal B.pertussis DNA PCR Nasal C.pneumoniae (PCR) Kiran Human Metapneumo PCR Nasal M.pneumoniae (PCR) Nasal SARS-CoV-2 (PCR) ABX Reporting Has patient been on IV antibiotics over the past 48 hours?: Yes Sepsis Event Note (H) - Evaluation Current Stage of Sepsis: Resolved Possible source of Sepsis: positive: Genitourinary - Sepsis Criteria Sepsis Criteria: Recorded Temperature greater than 38.3C or Less than 36C, Recorded Heart Rate greater than 90 bpm, WBC count greater than 12,000 or less than 4000, Renal: urine output less than 0.5ml/kg/hr for 2 hours or creatinine gr Assessment/Plan - Problem List (1) Sepsis Impression: resolved criteria This appears to be secondary to the pyelonephritis. He presented with fever, tachycardia, leukocytosis. His lactic acid is normal and he is normotensive. We will admit for IV antibiotics. We started him on cefepime on the basis of outpatient cultures. Preliminary urine and blood cultures show him to have gram-negative bacilli. PCR shows it to be Klebsiella oxytoca. Sensitivities are pending. Cefepime day 2 Plan: Follow-up on sensitivities. Follow daily CBC. If this is ESBL not sensitive to quinolones, he will need a PICC line and IV antibiotics for up to 3 weeks since he is male and w large prostate. If it is sensitive to quinolone there is a possibility he go home on oral. Qualifiers: Sepsis type: sepsis due to unspecified organism Sepsis acute organ dysfunction status: with acute organ dysfunction Severe sepsis acute organ dysfunction type: acute renal failure Acute renal failure type: unspecified Severe sepsis shock status: without septic shock Qualified Code(s): A41.9 - Sepsis, unspecified organism; R65.20 - Severe sepsis without septic shock; N17.9 - Acute kidney failure, unspecified (2) Pyelonephritis Conclusion/Plan: He presented with abnormal urinalysis, flank pain, and the criteria for sepsis. His outpatient urinalysis from October 18 grew Klebsiella oxytocin which is sensitive to cefepime, meropenem, ciprofloxacin and resistant to Augmentin, ceftriaxone. Current CT of the abdomen pelvis revealed no obvious obstruction. There is bilateral hydronephrosis secondary to likely bladder outlet obstr uction due to clot versus mass. He is very concerned once he asked me what this could be from. He is not happy that I mention possible bladder cancer. I tried to reassure him as much as possible (3) Bilateral hydronephrosis Conclusion/Plan: He has bilateral hydronephrosis on imaging without evidence of obstructive stones. Suspect this is secondary to bladder outlet obstruction due to a clot or mass in his bladder versus BPH. This finding was discussed with urology by the emergency department provider and they recommended Laughlin catheter placement and outpatient follow-up. We will keep the catheter in place and continue Flomax as well as Proscar. (4) Acute kidney injury superimposed on CKD Conclusion/Plan: It appears he likely has chronic kidney disease secondary to the hydronephrosis which was present even last month. His acute kidney injury I suspect is due to worsening obstruction although there could be component of prerenal injury. At this time, we will hold his home lisinopril. After his hospitalization in August, we do not know what his creatinine went down to. When we saw him in the ER the day of transfer to [facility], his creatinine was 6. Yesterday's creatinine was 3.8, today is 3.7. Avoid nephrotoxins. We will keep the Laughlin catheter in place and monitor his renal function on daily basis. (5) Hematuria Conclusion/Plan: Suspect this may be secondary to laughlin irritation and his BPH versus mass or clot in the bladder. He has minimal gross hematuria at this time We have kept the Laughlin catheter in place and started the patient on continuous bladder irrigation. He will need outpatient follow-up with urology for cystoscopy. We will hold aspirin given the hematuria but will resume when appropriate. stop continuous flow today. (6) Anemia Conclusion/Plan: His hemoglobin is actually increased today to 9.6 from 8.1 last month. 8.4 grams today. This could be chronic secondary to renal insufficiency although there could also be a component of acute blood loss anemia given the hematuria. Iron studies show an iron of 9, TIBC 123, percent saturation 7. Transferrin 88. Ferritin 598. we are holding pharmacologic DVT prophylaxis and his home aspirin. SCDs for DVT prophylaxis. Transfuse if he drops below 7 start ferrous gluconate orally and consider IV iron in the outpatient setting. Pharmacy is asking us to avoid iron in the inpatient status. (7) History of coronary artery disease Conclusion/Plan: Stable. We held his home aspirin given the hematuria but continue his statin. We have continued his beta-larry once we ensured his blood pressure is stable from a sepsis standpoint. (8) Prediabetes Conclusion/Plan: This is diet controlled. Hemoglobin 9.6 on admission, 8.4 today here he is eating 25 to 75% of his food. He is on a carb controlled diet. Fasting glucose 104 this morning.
[2020-10-23] MEDS: FINASTERIDE 5 MG TABLET PO SCH (08:32)
[2020-10-23] MEDS: FERROUS GLUCONATE 324 MG TABLET PO SCH (08:32)
[2020-10-23] MEDS: LACTATED RINGERS 1,000 ML IV SCH ×2 (08:32→17:02)
[2020-10-23] MEDS ORDERED: CEFEPIME 1 GM in SODIUM CHLORIDE 0.9% MINIBAG 100 ML IV SCH (09:00)
[2020-10-23] MEDS: INSULIN ASPART 300 UNIT/3 ML PEN SUBQ SCH ×2 (16:38→21:07)
[2020-10-23] MEDS: TAMSULOSIN 0.4 MG CAPSULE PO SCH (21:05)
[2020-10-24] MEDS: ACETAMINOPHEN 325 MG TABLET PO PRN ×2 (00:26→06:41)
[2020-10-24] MEDS: LACTATED RINGERS 1,000 ML IV SCH ×3 (02:36→22:14)
[2020-10-24] MEDS: SODIUM CHLORIDE FLUSH 0.9% 10 ML SYRINGE IVP SCH ×3 (02:36→16:58)
[2020-10-24 05:22] LABS: BASOPHILS # (AUTO) 0.1 10^3/uL (0.0-0.1); BASOPHILS % (AUTO) 0.5 %; EOSINOPHILS # (AUTO) 0.2 10^3/uL (0.0-0.7); EOSINOPHILS % (AUTO) 1.7 %; HCT - HEMATOCRIT 24.8 % (42.0-52.0); LYMPHOCYTES # (AUTO) 0.8 10^3/uL (1.5-3.5); LYMPHOCYTES % (AUTO) 7.8 %; MEAN CORPUSCULAR HEMOGLOBIN 30.3 pg (27.0-31.0); MEAN CORPUSCULAR HGB CONC 32.3 g/dL (32.0-36.0); MEAN CORPUSCULAR VOLUME 93.9 fL (80.0-94.0); MEAN PLATELET VOLUME 9.8 fL (7.4-11.4); MONOCYTES % (AUTO) 9.9 %; NEUTROPHILS # (AUTO) 8.1 10^3/uL (1.5-6.6); NEUTROPHILS % (AUTO) 79.4 %; PLT - PLATELET COUNT 203 10^3/uL (130-450); RED BLOOD COUNT 2.64 10^6/uL (4.70-6.10); RED CELL DISTRIBUTION WIDTH 13.5 % (12.0-15.0); WHITE BLOOD COUNT 10.2 x10^3/uL (4.8-10.8)
[2020-10-24 05:48] LABS: CALCIUM 8.6 mg/dL (8.5-10.3); MAGNESIUM 1.6 mg/dL (1.7-2.8); POTASSIUM 3.8 mmol/L (3.5-5.0)
[2020-10-24] MEDS: INSULIN ASPART 300 UNIT/3 ML PEN SUBQ SCH ×3 (07:31→16:57)
[2020-10-24] MEDS: MAGNESIUM OXIDE 400 MG TABLET PO SCH (08:51)
[2020-10-24] MEDS: FINASTERIDE 5 MG TABLET PO SCH (08:51)
[2020-10-24] MEDS: FERROUS GLUCONATE 324 MG TABLET PO SCH (08:51)
[2020-10-24] MEDS: CEFEPIME 1 GM in SODIUM CHLORIDE 0.9% MINIBAG 100 ML IV SCH (08:52)
--- NOTE | 2020-10-24 10:50 | PROVIDER PROGRESS NOTE ---
Subjective - Prog Note Date Prog Note Date: 10/24/20 - Subjective Pt reports feeling: Improved Subjective: Patient feels better, patient Denies fever, chill, shortness of breathing. He reported he still had some blood clots in his urination. we will continue irrigation on today. He reported he had appointment on tomorrow to see his urologist, discussed for patient, likely patient cannot make tomorrow appointment. consult with social work to help patient make an earliest appointment in the other day. Current Medications - Current Medications Current Medications: Active Medications Acetaminophen (Acetaminophen 325 Mg Tablet) 650 mg PO Q4HR PRN PRN Reason: Pain 1 to 4 Last Admin: 10/24/20 06:41 Dose: 650 mg Documented by: Ferrous Gluconate (Ferrous Gluconate 324 Mg Tablet) 324 mg PO DAILYWM [facility] Last Admin: 10/24/20 08:51 Dose: 324 mg Documented by: Finasteride (Finasteride 5 Mg Tablet) 5 mg PO DAILY [facility] Last Admin: 10/24/20 08:51 Dose: 5 mg Documented by: Lactated Ringer's (Lr) 1,000 mls @ 100 mls/hr IV .Q10H [facility] Last Admin: 10/24/20 02:36 Dose: 100 mls/hr Documented by: Cefepime HCl 1 gm/ Sodium (Chloride) 100 mls @ 200 mls/hr IV DAILY [facility] Last Infusion: 10/24/20 09:46 Dose: Infused Documented by: Insulin Aspart (Insulin Aspart 300 Unit/3 Ml Pen) 1 - 9 unit SUBQ 0800,1200,1700,2100 [facility]; Protocol Last Admin: 10/24/20 07:31 Dose: Not Given Documented by: Magnesium Oxide (Magnesium Oxide 400 Mg Tablet) 400 mg PO DAILYWM [facility] Last Admin: 10/24/20 08:51 Dose: 400 mg Documented by: Morphine Sulfate (Morphine 2 Mg/Ml Carpuject) 2 mg IVP Q2HR PRN PRN Reason: Pain 8 to 10 Ondansetron HCl (Ondansetron 4 Mg/2 Ml Vial) 4 mg IVP Q6HR PRN PRN Reason: Nausea / Vomiting Sodium Chloride (Sodium Chloride Flush 0.9% 10 Ml Syringe) 10 ml IVP PRN PRN PRN Reason: NEEDED PER PROVIDER ORDERS Sodium Chloride (Sodium Chloride Flush 0.9% 10 Ml Syringe) 10 ml IVP 0100,0900,1700 [facility] Last Admin: 10/24/20 08:52 Dose: 10 ml Documented by: Tamsulosin HCl (Tamsulosin 0.4 Mg Capsule) 0.4 mg PO HS [facility] Last Admin: 10/23/20 21:05 Dose: 0.4 mg Documented by: Aspirin Chewable [[facility] Gregory Aspirin] 1 tab PO DAILY 09/19/20 Atorvastatin Calcium [Lipitor] 80 mg PO DAILY 09/19/20 Chlorthalidone 1 tab PO DAILY 09/19/20 Metoprolol Succinate [Toprol Xl] 1 tab PO DAILY 09/19/20 Omeprazole 40 mg PO DAILY 09/19/20 Tamsulosin HCl [Flomax] 0.8 mg PO QPM 09/19/20 lisinopriL [Lisinopril] 1 tab PO DAILY 09/19/20 Finasteride [Proscar] 5 mg PO DAILY 10/23/20 metFORMIN [Glucophage] 500 mg PO BID 10/23/20 Objective - Vital Signs/Intake & Output Vital Signs: Vital Signs x48h Temp Pulse Resp BP Pulse Ox 10/24/20 07:26 36.6 C 61 17 120/73 96 10/24/20 05:00 36.6 C 55 L 18 146/70 H 97 Intake & Output: Intake & Output 10/21/20 10/22/20 10/23/20 10/24/20 23:59 23:59 23:59 23:59 Intake Total 2195.59 07106.667 3925 Output Total 2100 77493 4000 Balance 95.59 -2223.333 -75 - Objective General Appearance: positive: No acute distress, Alert. negative: Lethargic Eyes Bilateral: positive: Normal inspection, PERRL, No lid inflammation ENT: positive: ENT inspection nml, No signs of dehydration. negative: Purulent nasal drainage Neck: positive: Nml inspection, Trachea midline. negative: Thyromegaly, Tracheal deviation Respiratory: positive: Chest non-tender, No respiratory distress, Breath sounds nml. negative: Wheezes, Rales Cardiovascular: positive: Regular rate & rhythm, No murmur. negative: Tachycard ia, Bradycardia, Systolic murmur, Diastolic murmur Peripheral Pulses: 2+ Radial (R), 2+ Radial (L) Abdomen: positive: Non-tender, Nml bowel sounds, No distention. negative: Tenderness Back: positive: Nml inspection Skin: positive: Color nml, Warm, Dry. negative: Cyanosis, Diaphoresis, Pallor Extremities: positive: Non-tender, Full ROM, Nml appearance. negative: Calf ten derness Neurologic/Psychiatric: positive: Oriented x3, Motor nml, Sensation nml, Mood/affect nml. negative: Weakness, Sensory loss, Facial droop, Slurred/abnml speech, Depressed mood/affect - Lab Results Fish Bones: 10/24/20 05:10 10/24/20 05:10 Other Labs: Lab Results x24hrs 10/24/20 10/24/20 10/24/20 Range/Units 07:25 05:10 05:10 WBC (4.8-10.8) x10^3/uL RBC (4.70-6.10) 10^6/uL Hgb (14.0-18.0) g/dL Hct (42.0-52.0) % MCV (80.0-94.0) fL MCH (27.0-31.0) pg MCHC (32.0-36.0) g/dL RDW (12.0-15.0) % Plt Count (130-450) 10^3/uL MPV (7.4-11.4) fL Neut # (Auto) (1.5-6.6) 10^3/uL Lymph # (Auto) (1.5-3.5) 10^3/uL Woodruff # (Auto) (0.0-1.0) 10^3/uL Eos # (Auto) (0.0-0.7) 10^3/uL Baso # (Auto) (0.0-0.1) 10^3/uL Absolute Nucleated RBC x10^3/uL Nucleated RBC % /100WBC Sodium (135-145) mmol/L Potassium (3.5-5.0) mmol/L Chloride (101-111) mmol/L Carbon Dioxide (21-32) mmol/L Anion Gap (6-13) BUN (6-20) mg/dL Creatinine (0.6-1.2) mg/dL Estimated GFR (MDRD) (>89) Glucose (70-100) mg/dL POC Whole Bld Glucose 102 H (70 - 100) mg/dL Calcium (8.5-10.3) mg/dL Magnesium (1.7-2.8) mg/dL Iron (45-182) ug/dL TIBC (250-450) ug/dL % Saturation (20-50) % Transferrin (180-329) mg/dL Ferritin 1051.0 H (23.9-336.2) ng/mL C-React Prot High Sens 176.9 mg/L 10/24/20 10/24/20 10/23/20 Range/Units 05:10 05:10 20:36 WBC 10.2 (4.8-10.8) x10^3/uL RBC 2.64 L (4.70-6.10) 10^6/uL Hgb 8.0 L (14.0-18.0) g/dL Hct 24.8 L (42.0-52.0) % MCV 93.9 (80.0-94.0) fL MCH 30.3 (27.0-31.0) pg MCHC 32.3 (32.0-36.0) g/dL RDW 13.5 (12.0-15.0) % Plt Count 203 (130-450) 10^3/uL MPV 9.8 (7.4-11.4) fL Neut # (Auto) 8.1 H (1.5-6.6) 10^3/uL Lymph # (Auto) 0.8 L (1.5-3.5) 10^3/uL Woodruff # (Auto) 1.0 (0.0-1.0) 10^3/uL Eos # (Auto) 0.2 (0.0-0.7) 10^3/uL Baso # (Auto) 0.1 (0.0-0.1) 10^3/uL Absolute Nucleated RBC 0.00 x10^3/uL Nucleated RBC % 0.0 /100WBC Sodium 139 (135-145) mmol/L Potassium 3.8 (3.5-5.0) mmol/L Chloride 107 (101-111) mmol/L Carbon Dioxide 23 (21-32) mmol/L Anion Gap 9.0 (6-13) BUN 60 H (6-20) mg/dL Creatinine 4.0 H (0.6-1.2) mg/dL Estimated GFR (MDRD) 15 L (>89) Glucose 100 (70-100) mg/dL POC Whole Bld Glucose 127 H (70 - 100) mg/dL Calcium 8.6 (8.5-10.3) mg/dL Magnesium 1.6 L (1.7-2.8) mg/dL Iron 8 L (45-182) ug/dL TIBC 102 L (250-450) ug/dL % Saturation 8 L (20-50) % Transferrin 73 L (180-329) mg/dL Ferritin (23.9-336.2) ng/mL C-React Prot High Sens mg/L 10/23/20 Range/Units 16:22 WBC (4.8-10.8) x10^3/uL RBC (4.70-6.10) 10^6/uL Hgb (14.0-18.0) g/dL Hct (42.0-52.0) % MCV (80.0-94.0) fL MCH (27.0-31.0) pg MCHC (32.0-36.0) g/dL RDW (12.0-15.0) % Plt Count (130-450) 10^3/uL MPV (7.4-11.4) fL Neut # (Auto) (1.5-6.6) 10^3/uL Lymph # (Auto) (1.5-3.5) 10^3/uL Woodruff # (Auto) (0.0-1.0) 10^3/uL Eos # (Auto) (0.0-0.7) 10^3/uL Baso # (Auto) (0.0-0.1) 10^3/uL Absolute Nucleated RBC x10^3/uL Nucleated RBC % /100WBC Sodium (135-145) mmol/L Potassium (3.5-5.0) mmol/L Chloride (101-111) mmol/L Carbon Dioxide (21-32) mmol/L Anion Gap (6-13) BUN (6-20) mg/dL Creatinine (0.6-1.2) mg/dL Estimated GFR (MDRD) (>89) Glucose (70-100) mg/dL POC Whole Bld Glucose 99 (70 - 100) mg/dL Calcium (8.5-10.3) mg/dL Magnesium (1.7-2.8) mg/dL Iron (45-182) ug/dL TIBC (250-450) ug/dL % Saturation (20-50) % Transferrin (180-329) mg/dL Ferritin (23.9-336.2) ng/mL C-React Prot High Sens mg/L ABX Reporting Has patient been on IV antibiotics over the past 48 hours?: Yes Sepsis Event Note (H) - Evaluation Current Stage of Sepsis: Resolved Possible source of Sepsis: positive: Genitourinary - Sepsis Criteria Sepsis Criteria: Recorded Temperature greater than 38.3C or Less than 36C, Recorded Heart Rate greater than 90 bpm, WBC count greater than 12,000 or less than 4000, Renal: urine output less than 0.5ml/kg/hr for 2 hours or creatinine gr Assessment/Plan - Problem List (1) Sepsis Impression: resolved criteria. Patient's WBC become normal, patient has no more tachycardia or tachypnea or fever. Patient had a both UTI and bacteremia according to culture study. UA culture and blood culture reports show both sensitivity to Cipro and cefepime. Since this is a severe ESBL bacteremia, we will repeat blood culture. According to sensitivity study, And the patient clinically response antibiotics Cefepime, we will continue Cefepime intravenous in the hospital, Patient may go home with PO Cipro because the sensitivity study and low JOANNE (0.5). pt may need up to 3 weeks since he is male and w large prostate. (2) Pyelonephritis Conclusion/Plan: pt has Pyelonephritis in the admission, Current CT of the abdomen pelvis revealed no obvious obstruction and bilateral hydronephrosis is likely secondary to bladder outlet obstruction due to clot versus mass. Yesterday evening patient report he still have blood clots in the urination, We will continue Irrigation on today. Continue antibiotics. (3) Bilateral hydronephrosis Conclusion/Plan: pt has Laughlin at the place. CT show bilateral hydronephrosis on imaging without evidence of obstructive stones. This finding was discussed with urology by the emergency department provider and they recommended Laughlin catheter placement and outpatient follow-up. We will keep the catheter in place and continue Flomax as well as Proscar. (4) Acute kidney injury superimposed on CKD Conclusion/Plan: Patient had creatinine 2.94 on 10/03/20, pt had creatinine was between 3-3.6 at [facility] [place] [facility] to [facility] medical record. Patient's creatinine is slightly elevated, today at 4.0 and patient had a 3.8 in the admission. It appears secondary to the hydronephrosis which was present even last month. Agree His acute kidney injury likely is due to worsening obstruction although there could be component of prerenal injury. At this time, we will hold his home lisinopril. When we saw him in the ER the day of transfer to [facility], his creatinine was 6. Yesterday's creatinine was 3.8, today is 3.7. Avoid nephrotoxins. We will keep the Laughlin catheter in place and monitor his renal function on daily basis, Continue intravenous IV fluids for hydration. Because the patient is on irrigation it is difficulty to measure exactly how much patient had urination. (5) Hematuria Patient reported he still have blood clots on his urination on last night, we will continue irrigation today and we will stop tomorrow. Suspect this may be secondary to laughlin irritation and his BPH versus mass or clot in the bladder. He has no vision gross hematuria at his urine We have kept the Laughlin catheter in place and started the patient on continuous bladder irrigation. He will need outpatient follow-up with urology for cystoscopy. We will hold aspirin given the hematuria but will resume when appropriate. social security assessor will help pt make appointment to see his urologist. (6) Anemia Conclusion/Plan: His hemoglobin is 8 grams today. Anemia study show iron deficiency, patient was given iron. The anemia could be chronic secondary to renal insufficiency although there could also be a component of acute blood loss anemia given the hematuria. we are holding pharmacologic DVT prophylaxis and his home aspirin. SCDs for DVT prophylaxis. (7) History of coronary artery disease Conclusion/Plan: Stable. (8) Prediabetes Conclusion/Plan: A1C is 5.6, pt also has good glucose control
--- NOTE | 2020-10-24 11:37 | PHARMACY PROGRESS NOTE ---
- Best Possible Medication History Admit Date and Time: 10/22/201936 Processed by: Pharmacy Medication History completed: Yes Patient Interview: Completed Secondary Source(s): Physician records, Pharmacy records, Insurance records (PATIENT INTERVIEWED BY PHARMACY. PATIENT PROVIDED MED LIST) As the person ultimately responsible for medication therapy, providers are able to order a medication from an existing home medication list in [facility] via the "Reconcile Routine" prior to Confirmation of that medication by sales support coordinator. Such practice is discouraged except when the physician, in their clinical judgment, deems that a medical need exists for a medication without regard to previous use.
[2020-10-24 12:12] LABS: ESTIMATED AVERAGE GLUCOSE 114 mg/dL (70-100); HEMOGLOBIN A1c% 5.6 % (4.27-6.07)
[2020-10-24] MEDS: SACCHAROMYCES BOULARDII 250 MG CAPSULE PO SCH ×2 (15:26→17:35)
[2020-10-24] MEDS: TAMSULOSIN 0.4 MG CAPSULE PO SCH (20:17)
[2020-10-25] MEDS: SODIUM CHLORIDE FLUSH 0.9% 10 ML SYRINGE IVP SCH ×2 (00:08→08:07)
[2020-10-25] MEDS: ACETAMINOPHEN 325 MG TABLET PO PRN (03:10)
[2020-10-25 05:16] LABS: BASOPHILS % (AUTO) 0.4 %; EOSINOPHILS # (AUTO) 0.2 10^3/uL (0.0-0.7); EOSINOPHILS % (AUTO) 2.3 %; HCT - HEMATOCRIT 23.3 % (42.0-52.0); HGB - HEMOGLOBIN 7.6 g/dL (14.0-18.0); LYMPHOCYTES # (AUTO) 1.2 10^3/uL (1.5-3.5); LYMPHOCYTES % (AUTO) 11.5 %; MEAN CORPUSCULAR HEMOGLOBIN 30.3 pg (27.0-31.0); MEAN CORPUSCULAR HGB CONC 32.6 g/dL (32.0-36.0); MEAN CORPUSCULAR VOLUME 92.8 fL (80.0-94.0); MEAN PLATELET VOLUME 10.3 fL (7.4-11.4); MONOCYTES % (AUTO) 9.6 %; NEUTROPHILS # (AUTO) 7.8 10^3/uL (1.5-6.6); PLT - PLATELET COUNT 197 10^3/uL (130-450); RED BLOOD COUNT 2.51 10^6/uL (4.70-6.10); RED CELL DISTRIBUTION WIDTH 13.5 % (12.0-15.0); WHITE BLOOD COUNT 10.3 x10^3/uL (4.8-10.8)
[2020-10-25 05:21] LABS: CALCIUM 8.5 mg/dL (8.5-10.3); CREATININE 3.8 mg/dL (0.6-1.2); MAGNESIUM 1.6 mg/dL (1.7-2.8)
[2020-10-25] MEDS: LACTATED RINGERS 1,000 ML IV SCH (07:58)
[2020-10-25] MEDS: MAGNESIUM OXIDE 400 MG TABLET PO SCH (07:58)
[2020-10-25] MEDS: SACCHAROMYCES BOULARDII 250 MG CAPSULE PO SCH (07:58)
[2020-10-25] MEDS: FERROUS GLUCONATE 324 MG TABLET PO SCH (07:58)
[2020-10-25] MEDS ORDERED: MAGNESIUM SULFATE 2 GRAM 2 GM/50 ML BAG IV ONE (08:00)
[2020-10-25] MEDS: FINASTERIDE 5 MG TABLET PO SCH (08:00)
[2020-10-25 10:05] LABS: HCT - HEMATOCRIT 24.3 % (42.0-52.0); HGB - HEMOGLOBIN 8.2 g/dL (14.0-18.0)
[2020-10-25] MEDS: CEFEPIME 1 GM in SODIUM CHLORIDE 0.9% MINIBAG 100 ML IV SCH (10:05)
--- NOTE | 2020-10-25 11:31 | Discharge Plan ---
Discharge Plan Problem Reviewed?: Yes Disposition: Home Health Service Condition: Stable Prescriptions: Ciprofloxacin HCl [Cipro] 500 mg PO DAILY #21 tablet Ferrous Gluconate [Fergon] 324 mg PO DAILYWM #30 tablet Diet: Regular Activity Restrictions: Activity as Tolerated Shower Restrictions: No (fall precaution) Instruction Topics: Ciprofloxacin tablets, CAUTI Catheter Associated, UTI, Catheter Bag Urinary Empty Clean, Anemia Iron Deficiency , ED Bacteremia Rule Out Health Concerns: UTI/bacteremia, laughlin care, renal insufficiency/RAND, anemia Plan of Treatment: You were found to have UTI and bacteremia. Cipro is prescribed for three weeks to finish the treatment course. Home health RN is arranged to help your Laughlin care, Strongly advise you followup with your urologist appointment on next week. You were found to have acute on chronic renal insufficiency, you may followup with salon supervisor as out-pt and keep hydration at home Your HGB is increased slightly, you were also found to have Iron deficiency. Iron pill is prescribed for you, you may followup with your PCP in next week to recheck your HGB. Care Goals: stabilization and improvement of your medical conditions. Assessment: Discussed the care plan with you an your , answered your questions, you understood. Additional Instructions or Follow Up instructions: You may followup with your PCP in one week, and recheck your HGB in one week, may followup with your urologist at next week, may followup with salon supervisor as out-pt. Should your symptoms return or worsen, you may present to ER or call 911 for help Follow-Up Care: Home Health - RN No Smoking: If you smoke, Please STOP! Call for help.
--- NOTE | 2020-10-25 11:49 | DISCHARGE SUMMARY ---
Discharge Summary Admit Date: 10/22/20 Discharge Date: 10/25/20 Discharging Provider: Heriberto Rodriguez Primary Care Provider: Tyler Flores. Code Status: Attempt Resuscitation Condition at Discharge: Stable Discharge Disposition: Home Health Service Discharge Facility Name: home - DIAGNOSES Discharge Diagnoses with Status of Each Condition: (1) Sepsis resolved criteria. Patient's WBC become normal, patient has no more tachycardia or tachypnea or fever. Patient had a both UTI and bacteremia according to culture study. Repeated blood cultures show negative for bacteremia. UA culture and blood culture show positive ESBL Kleb oxycota. According to sensitivity study, This ESBL sensitivity to Cipro,And Cipro's JOANNE is 0.5. Patient is prescribed PO Cipro for 3 weeks. (2) Pyelonephritis Patient has no fever, patient has no nausea or vomiting, his clinical symptoms is resolved. Patient will follow up with his urologist next Friday per pt's report. Patient is prescribed PO Cipro for 3 weeks. (3) Bilateral hydronephrosis Per pt's Urologist S recommendation, pt is recommended Eagle catheter placement and outpatient follow-up. Resume home medications. Patient will see his urologist on next Friday. Home health RN is arranged for patient to care of patient Eagle. Patient has no more Blood clots or blood in the Irrigation fluid. Patient's hemoglobin is stable and slightly increased. (4) Acute kidney injury superimposed on CKD pt's creatinine is 3.8 and stable. pt had creatinine was between 3-3.6 at [facility] at this [place]. Patient may follow-up with visitor use assistant as outpatient (5) Hematuria resolved. Patient has no more Blood clots or blood in the Irrigation fluid. Patient's hemoglobin is stable and slightly increased. (6) Anemia Patient's hemoglobin is stable and slightly increased. The anemia could be chronic secondary to renal insufficiency although there could also be a component of acute blood loss anemia given the hematuria. Patient is also found to have iron deficiency, patient is prescribed iron. (7) History of coronary artery disease Stable.Resume home medications (8) Prediabetes A1C is 5.6, pt also has good glucose control. No home diabetic medication or insulin. - HPI History of Present Illness: refer from Dr. Ruiz's HPI on 10/22/20 This is a pleasant 65-year-old male with a past medical history significant for coronary artery disease, hypertension, prediabetes, BPH who presents today complaining of fever and fatigue. He was hospitalized last month at [facility] for nearly 2 weeks for acute kidney injury secondary to bladder outlet obstruction that required a Eagle catheter to be placed. He also had pancreatitis and underwent a cholecystectomy during that hospitalization. He states he was discharged home with a Eagle catheter. He developed hematuria last Friday while the catheter was in place and so he saw his primary care provider who ordered urinalysis and he was diagnosed with a urinary tract infection and was started on Augmentin. He then saw his urologist 2 days later who irrigated his bladder and removed the catheter. The patient states he was supposed follow-up with his primary care provider if he had difficulty urinating but he felt like he was improving as he was able to urinate about 120 mL each time and the bleeding had resolved. He then woke up this morning feeling fatigued and weak. He measured his temperature which was as high as 101 F. He reports some chills and rigors. Denies any dizziness, lightheadedness, chest pain, dyspnea. He does report dysuria but denies any further hematuria. He does complain of some suprapubic tenderness. He tells me he is scheduled to see his urologist for cystoscopy. He does take aspirin 81 mg daily for his history of coronary artery disease. He is also taking Proscar and Flomax. He tells me his baseline creatinine after discharge from [facility] was about 2.4. In the emergency department, he was found to be febrile with a temperature of 38.4 C. His heart was in the 100s. Blood pressure was in the 140 systolic. He was tachypneic with respiratory rate of 22. He was saturating 99% on room air. Labs were significant for a white count of 16 with a left shift. Hemoglobin was 9.6. His BUN was 69 and creatinine 3.8. Lactic acid was 1.6. Urinalysis revealed large occult blood, large leuk esterase, 11-25 RBCs, with >25 WBCs and moderate bacteria. CT of the abdomen and pelvis revealed moderate hydronephrosis and hydroureters bilaterally with a masslike density in the bladder lumen which could be hematoma or tumor mass. Bladder wall thickening. Received cefepime IV in the emergency department. Given the above findings, medicine was consulted for admission. We did discuss goals of care and he would like to be a full code. - HOSPITAL COURSE Hospital Course: Patient was admitted for fever, patient was found to have sepsis. Patient had fever, tachypnea, tachycardia, elevated WBC. Patient was found to have ESBL UTI and bacteremia with ESBL. Patient was treated with antibiotic according to his out patient UA and blood culture. Then patient's symptoms were resolved, patient WBC become normal, patient has no more tachypnea, tachycardia, repeated blood culture is negative for bacteremia. Patient was found to have difficulty with urination. Patient's urologist was contacted by ER provider, Recommended to have a Eagle for patient, and follow-up with patient's urologist as an outpatient. Patient also had irrigation for his hematuria. After irrigation, patient hematuria was resolved. Patient hemoglobin was stable and slightly increased. Discussed the care plan and all image study results with pt and his , answered all their questions, they were happy for that. Patient was discharged as hemodynamic stable condition - ALLERGIES Allergies/Adverse Reactions: Allergies Allergy/AdvReac Type Severity Reaction Status Date / Time No Known Drug Allergies Allergy Verified 10/22/20 17:18 - MEDICATIONS Home Medications: Ambulatory Orders Medication Instructions Recorded Confirmed Aspirin Chewable [St Gregory 81 mg PO DAILY 09/19/20 10/24/20 Aspirin] Atorvastatin Calcium [Lipitor] 80 mg PO DAILY 09/19/20 10/24/20 Omeprazole 40 mg PO DAILY 09/19/20 10/24/20 Tamsulosin HCl [Flomax] 0.8 mg PO QPM 09/19/20 10/24/20 Finasteride [Proscar] 5 mg PO DAILY 10/23/20 10/24/20 Ferrous Gluconate 240 mg PO DAILY 10/24/20 10/24/20 Lactobacillus Acidophilus 1 tab PO DAILY 10/24/20 10/24/20 [Probiotic Acidophilus] Ciprofloxacin HCl [Cipro] 500 mg PO DAILY #21 tablet 10/25/20 Ferrous Gluconate [Fergon] 324 mg PO DAILYWM #30 tablet 10/25/20 - PHYSICAL EXAM AT DISCHARGE General Appearance: positive: No acute distress, Alert. negative: Lethargic Eyes Bilateral: positive: Normal inspection, PERRL, No lid inflammation ENT: positive: ENT inspection nml, No signs of dehydration. negative: Purulent nasal drainage Neck: positive: Nml inspection, Trachea midline. negative: Thyromegaly, Tracheal deviation Respiratory: positive: Chest non-tender, No respiratory distress, Breath sounds nml. negative: Wheezes Cardiovascular: positive: Regular rate & rhythm, No murmur. negative: Tachycardia, Bradycardia, Systolic murmur, Diastolic murmur Peripheral Pulses: positive: 2+ Abdomen: positive: Non-tender, Nml bowel sounds, No distention. negative: Tenderness, Guarding Back: positive: Nml inspection Skin: positive: Color nml, Warm, Dry. negative: Cyanosis, Diaphoresis Extremities: positive: Non-tender, Full ROM, Nml appearance. negative: Calf tenderness Neurologic/Psychiatric: positive: Oriented x3, Motor nml, Sensation nml, Mood/affect nml. negative: Weakness, Sensory loss, Facial droop, Slurred/abnml speech, Depressed mood/affect - LABS Result Diagrams: 10/25/20 10:00 10/25/20 04:40 - SEPSIS Current Stage of Sepsis: Resolved Possible source of Sepsis: Genitourinary Sepsis Criteria: Recorded Temperature greater than 38.3C or Less than 36C, Recorded Heart Rate greater than 90 bpm, WBC count greater than 12,000 or less than 4000, Renal: urine output less than 0.5ml/kg/hr for 2 hours or creatinine gr - FOLLOW UP Follow Up: You were found to have UTI and bacteremia. Cipro is prescribed for three weeks to finish the treatment course. Home health RN is arranged to help your Eagle care, Strongly advise you followup with your urologist appointment on next week. You were found to have acute on chronic renal insufficiency, you may followup with visitor use assistant as out-pt and keep hydration at home Your HGB is increased slightly, you were also found to have Iron deficiency. Iron pill is prescribed for you, you may followup with your PCP in next week to recheck your HGB. You may followup with your PCP in one week, and recheck your HGB in one week, may followup with your urologist at next week, may followup with visitor use assistant as out-pt. Should your symptoms return or worsen, you may present to ER or call 911 for help - TIME SPENT Time Spent in Discharge (Minutes): 30
[2020-10-25 12:21] VITALS: BP 128/78
[2020-10-26] MEDS ORDERED: CIPROFLOXACIN 250 MG TABLET PO SCH (09:00)
== END 2020-10-25 13:40 | disposition home health service (06) | DRG 872 ==
LOC: ED 17:05 → MS2 19:37
PROVIDERS: ADMIT Internal Medicine; ATTEND Nurse Practitioner Gerontology
DX: A41.9 Sepsis, unspecified organism (principal); A41.59 Other Gram-negative sepsis; N17.9 Acute kidney failure, unspecified; N13.8 Other obstructive and reflux uropathy; N13.6 Pyonephrosis; D62 Acute posthemorrhagic anemia; N40.1 Benign prostatic hyperplasia with lower urinary tract symptoms; I12.9 Hypertensive chronic kidney disease with stage 1 through stage 4 chronic kidney disease, or unspecified chronic kidney disease; E11.9 Type 2 diabetes mellitus without complications; Z20.822 Contact with and (suspected) exposure to COVID-19; N18.9 Chronic kidney disease, unspecified; R65.20 Severe sepsis without septic shock; D63.8 Anemia in other chronic diseases classified elsewhere; D50.9 Iron deficiency anemia, unspecified; R73.03 Prediabetes; E78.00 Pure hypercholesterolemia, unspecified; I25.10 Atherosclerotic heart disease of native coronary artery without angina pectoris; R31.9 Hematuria, unspecified; Z79.82 Long term (current) use of aspirin; Z79.899 Other long term (current) drug therapy; Z95.1 Presence of aortocoronary bypass graft; Z87.891 Personal history of nicotine dependence
CPT/HCPCS: 36415; 51702; 74176; 80048; 80053; 81001; 82728; 83036; 83540; 83605; 83735; 84466; 85014; 85018; 85025; 86141; 87040; 87077; 87086; 87150; 87181; 87631; 96365; 99284; 99285; A9270; J7120; 0202U; 87493

== ENCOUNTER 2022-07-15 09:07 | Outpatient (CLI) | payer MEDICARE ==
--- NOTE | 2022-07-15 17:10 | XRAY Report ---
PROCEDURE: Knee 3 View RT INDICATIONS: PAIN OF RIGHT KNEE JOINT TECHNIQUE: 3 views of the right knee(s) were acquired. COMPARISON: None. FINDINGS: Bones: No fractures or dislocations. Mild to moderate tricompartmental osteoarthritis is seen with j oint space narrowing, subchondral sclerosis and marginal osteophyte formation more notably in patello femoral compartment. No patella subluxation. No suspicious bony lesions. Soft tissues: Small suprapatellar joint effusion is seen. No suspicious soft tissue calcifications. IMPRESSION: Mild to moderate tricompartmental osteoarthritis and small to moderate joint effusion. N o fracture or dislocation. Reviewed by: Christian Fofana MD on 07/15/2022 5:09 PM PST Approved by: Christian Fofana MD on 07/15/2022 5:09 PM PST Station ID: [id number]
== END 2022-07-15 09:08 | disposition home or self-care (01) ==
LOC: DI.S 09:07
PROVIDERS: ATTEND Nurse Practitioner Family
DX: M17.11 Unilateral primary osteoarthritis, right knee (principal); M25.461 Effusion, right knee

== ENCOUNTER 2022-12-12 19:36 | Outpatient (CLI) | payer MEDICARE | END 2022-12-12 23:59 | disposition short-term general hospital (02) | LOC: EMS 19:36 | DX: R07.89 Other chest pain (principal); R53.1 Weakness | CPT/HCPCS: A0425; A0429 ==

== ENCOUNTER 2023-08-04 08:15 | Outpatient (CLI) | payer MEDICARE ==
--- NOTE | 2023-08-04 20:05 | Ultrasound Report ---
PROCEDURE: Aorta Screening INDICATIONS: EX SMOKER TECHNIQUE: Real time scanning was performed of the aorta and iliac arteries, with image documentatio n. COMPARISON: None. FINDINGS: Aorta: Proximal aortic diameter measures 3.0 x 2.9 cm. Mid-aorta measures 2.0 x 1.9 cm. Distal aor tic diameter is 1.8 x 1.8 cm. Iliac arteries: Right common iliac artery measures 1.0 x 1.0 cm. Left common iliac artery measures 1.0 x 1.1 cm. Calcified atherosclerotic vascular plaque noted IMPRESSION: Aortic atherosclerosis without aneurysm or dissection Recommended intervals for follow-up imaging of ectatic aortas and abdominal aortic aneurysms, per ACR consensus guidelines: 2.5-2.9 cm: 5 years 3.0-3.4 cm: 3 years 3.5-3.9 cm: 2 years 4.0-4.4 cm: 1 year 4.5-4.9 cm: 6 months + endovascular referral 5.0-5.5 cm: 3-6 months + endovascular referral Reviewed by: Sonu Merino MD on 08/04/2023 7:04 PM AKST Approved by: Sonu Merino MD on 08/04/2023 7:04 PM AKST Station ID: [id number]
== END 2023-08-04 08:16 | disposition home or self-care (01) ==
LOC: DI 08:15
PROVIDERS: ATTEND Nurse Practitioner Family
DX: Z13.6 Encounter for screening for cardiovascular disorders (principal); Z87.891 Personal history of nicotine dependence; I70.0 Atherosclerosis of aorta